=== PATIENT | male | born 1940 | race American Indian/Alaskan Native ===

== ENCOUNTER 2016-05-05 12:45 | Outpatient (CLI) | payer MEDICARE ==
--- NOTE | 2016-05-05 13:59 | Cat Scan Report ---
CT ABDOMEN WITHOUT CONTRAST: 05/05/16 12:45:00 CLINICAL: Ascites. No comparison. TECHNIQUE: Volumetric acquisition and 1.25 millimeter scan reconstructions without contrast Oral contrast was not given. FINDINGS: Abdomen: This examination is limited by the absence of bowel and IV contrast. The heart is large. Small bilateral pleural effusions, left larger than right. The liver is large with normal overall density. The right lobe measures 19 cm in length. Surface nodularity of the liver but no liver mass identified. There is a large volume of ascites and a large amount of perihepatic ascites. The portal vein is relatively large with no evidence of thrombus. There appears to be a small contracted gallbladder with several calculi layering dependently in the gallbladder. However, the gallbladder wall is not well delineated. The bile ducts are normal. Fluid and air distended stomach which is unremarkable. A large number of serpiginous opacity throughout the abdomen are suggestive of gastric, splenic and mesenteric varices. There is also increased opacity of the greater omentum. The small bowel is nondilated. Normal duodenum, pancreas and spleen. The adrenal glands and kidneys are unremarkable. The renal collecting systems and ureters are nondilated. Bilateral nonspecific perinephric stranding. It appears that there has been a total colectomy with a right ileostomy. Numerous enlarged mesenteric lymph nodes. There is an IVC filter. Calcification of the abdominal aorta. Ascites extends into the pelvis. IMPRESSION:Hepatomegaly and large volume ascites. Suspect cirrhosis of the liver with gastric and splenic varices. Mesenteric and omental opacities are suspicious for possible carcinomatosis.
== END 2016-05-05 12:46 | disposition home or self-care (01) ==
LOC: SPVIMAG 12:45
DX: K80.20 Calculus of gallbladder without cholecystitis without obstruction (principal); J90 Pleural effusion, not elsewhere classified; I70.0 Atherosclerosis of aorta; R16.0 Hepatomegaly, not elsewhere classified; Z90.49 Acquired absence of other specified parts of digestive tract; Z93.2 Ileostomy status
CPT/HCPCS: 74150

== ENCOUNTER 2016-05-06 10:04 | Inpatient (IN) | payer MEDICARE ==
[2016-05-06 11:34] LABS: Basophils % (Auto) 1.3 % (0.0-1.8); Hematocrit 43.6 % (35.5-45.6); Hemoglobin 13.6 gm/dl (11.8-15.2); Mean Corpuscular HGB Conc 31 % (32-34); Mean Corpuscular Hemoglobin 27 pg (28-32); Mean Corpuscular Volume 86 fl (84-94); Platelet Count 125 K/mm3 (140-440); Red Blood Count 5.08 M/mm3 (3.65-5.03); Red Cell Distribution Width 16.2 % (13.2-15.2); White Blood Count 5.1 K/mm3 (4.5-11.0)
[2016-05-06 11:50] LABS: Anion Gap 17 mmol/L; BUN/Creatinine Ratio 13.84; Blood Urea Nitrogen 18 mg/dL (9-20); Calcium 9.1 mg/dL (8.4-10.2); Carbon Dioxide 25 mmol/L (22-30); Chloride 104.2 mmol/L (98-107); Glucose 87 mg/dL (75-100); Potassium 3.8 mmol/L (3.6-5.0); Sodium 142 mmol/L (137-145)
--- NOTE | 2016-05-06 12:11 | XRay Report ---
ROUTINE CHEST, TWO VIEWS: HISTORY: Shortness of breath. Borderline to mild cardiomegaly and small pleural effusions are identified. Pulmonary vascularity is within normal limits. The lungs are clear. No evidence for pneumonia or pneumothorax. 3-lead pacemaker device is in position. IMPRESSION: Borderline to mild cardiomegaly and small bilateral pleural effusions.
[2016-05-06 12:17] LABS: Cholesterol 78 mg/dL (50-199); HDL Cholesterol 30 mg/dL (40-59); LDL Cholesterol,Direct 37 mg/dL (50-130); Triglycerides 59 mg/dL (2-149)
[2016-05-06 15:40] LABS: Bilirubin,Direct 0.5 mg/dL (0-0.2); Bilirubin,Total 2.3 mg/dL (0.1-1.2)
[2016-05-06 15:41] LABS: Albumin 3.4 g/dL (3.9-5); Albumin/Globulin Ratio 0.8 %; Bilirubin,Indirect 1.8 mg/dL; Total Protein 7.9 g/dL (6.3-8.2)
[2016-05-06] MEDS ORDERED: LASIX IV ONE (15:47)
--- NOTE | 2016-05-06 15:50 | Emergency Department Report ---
ED General Adult HPI - General Chief complaint: Abdominal Pain Stated complaint: SWELLING IN ABDOMEN Time Seen by Provider: 05/06/16 14:56 Source: patient, family, RN notes reviewed, old records reviewed Mode of arrival: Ambulatory Limitations: Physical Limitation - History of Present Illness Initial comments: Primary care DrAlee: Edda Brim Stiffener: [facility] Past medical history: Congestive heart failure, diabetes, hypertension, right lower quadrant colostomy, ICD [employer] This is a 75-year-old male. He is previously unknown to me. He is sent to the ER by his primary care doctor. As per verbal description from the patient's sister, the patient has been experiencing bilateral lower extremity swelling, scrotal swelling, abdominal swelling over the past few weeks. Positive mild shortness of breath. No chest pain. His primary care doctor obtain a noncontrast CT scan of the abdomen and pelvis yesterday. It demonstrated bilateral pleural effusions, large volume of ascites , perihepatic ascites, small contracted gallbladder with several dependent calculi, normal-appearing bile ducts, numerous opacities suggestive of varices, bilateral perinephric stranding. He is sent to the ER by his primary care doctor for further evaluation and management. No fevers or chills. Positive generalized weakness. No irritative or obstructive urinary symptoms. Positive mild chronic confusion as per his sister -: Gradual Location: abdomen, pelvis, genitals, left, right Radiation: distal Severity scale (0 -10): 10 Consistency: constant Improves with: none Worsens with: none Associated Symptoms: chest pain, shortness of breath, weakness - Related Data Home Medications Medication Instructions Recorded Confirmed Last Taken Carvedilol [Coreg] 3.125 mg PO BID 05/06/16 05/06/16 05/06/16 Lisinopril [Zestril] 5 mg PO QDAY 05/06/16 05/06/16 05/06/16 Metolazone 2.5 mg PO DAILY 05/06/16 05/06/16 05/06/16 Simvastatin [Zocor TAB] 20 mg PO QHS 05/06/16 05/06/16 05/05/16 Sitagliptin Phosphate [Januvia] 100 mg PO DAILY 05/06/16 05/06/16 05/06/16 glipiZIDE [Glucotrol] 10 mg PO BID 05/06/16 05/06/16 05/06/16 levETIRAcetam [Keppra TAB] 500 mg PO DAILY 05/06/16 05/06/16 05/05/16 Allergies Allergy/AdvReac Type Severity Reaction Status Date / Time codeine Allergy Unknown Verified 05/06/16 11:03 ED Review of Systems ROS: Stated complaint: SWELLING IN ABDOMEN Other details as noted in HPI Constitutional: malaise Respiratory: shortness of breath Cardiovascular: dyspnea on exertion Gastrointestinal: as per HPI Genitourinary: as per HPI Musculoskeletal: as per HPI Skin: as per HPI Neurological: weakness Psychiatric: as per HPI ED Past Medical Hx - Past Medical History Hx Hypertension: Yes Hx CVA: Yes Hx Congestive Heart Failure: Yes Hx Diabetes: Yes Hx Deep Vein Thrombosis: Yes Hx Asthma: Yes - Surgical History Hx Internal Defibrillator: Yes Additional Surgical History: COLOSTOMY - Social History Smoking Status: Former Smoker Substance Use Type: None - Medications Home Medications: Home Medications Medication Instructions Recorded Confirmed Last Taken Type Carvedilol [Coreg] 3.125 mg PO BID 05/06/16 05/06/16 05/06/16 History Lisinopril [Zestril] 5 mg PO QDAY 05/06/16 05/06/16 05/06/16 History Metolazone 2.5 mg PO DAILY 05/06/16 05/06/16 05/06/16 History Simvastatin [Zocor TAB] 20 mg PO QHS 05/06/16 05/06/16 05/05/16 History Sitagliptin Phosphate [Januvia] 100 mg PO DAILY 05/06/16 05/06/16 05/06/16 History glipiZIDE [Glucotrol] 10 mg PO BID 05/06/16 05/06/16 05/06/16 History levETIRAcetam [Keppra TAB] 500 mg PO DAILY 05/06/16 05/06/16 05/05/16 History ED Physical Exam - General Limitations: Physical Limitation General appearance: lethargic - Head Head exam: Present: atraumatic, normocephalic - Eye Eye exam: Present: normal appearance. Absent: nystagmus - ENT ENT exam: Present: mucous membranes dry - Neck Neck exam: Present: normal inspection, full ROM. Absent: tenderness, meningismus - Respiratory Respiratory exam: Present: rhonchi. Absent: respiratory distress - Cardiovascular Cardiovascular Exam: Present: regular rate, normal rhythm, normal heart sounds. Absent: bradycardia, tachycardia, irregular rhythm, systolic murmur, diastolic murmur, rubs, gallop - GI/Abdominal GI/Abdominal exam: Present: soft, distended, other (there is a right lower quadrant colostomy noted. The abdomen is distended with a positive fluid wave. There is no abdominal tenderness.). Absent: tenderness, guarding, rebound, rigid, pulsatile mass - Rectal Rectal exam: Present: deferred - exam: Present: scrotal swelling. Absent: testicular tenderness - Extremities Exam Extremities exam: Present: normal inspection, pedal edema, other (chronic discoloration, suggestive of venous insufficiency) - Back Exam Back exam: Present: normal inspection. Absent: tenderness, CVA tenderness (R) - Neurological Exam Neurological exam: Present: alert, other (Extraocular movements intact. Tongue midline. No facial droop. Facial sensation intact to light touch in the V1, V2 , V3 distribution bilaterally. 5 and 5 strength in 4 extremities.. Sensation is intact to light touch in 4 extremities.). Absent: motor sensory deficit - Psychiatric Psychiatric exam: Present: normal affect, normal mood - Skin Skin exam: Present: warm, dry, intact, normal color. Absent: rash ED Course Vital Signs 05/06/16 05/06/16 05/06/16 10:52 15:01 15:07 Temperature 98.0 F Pulse Rate 70 70 Respiratory 22 18 Rate Blood Pressure 108/77 Blood Pressure 118/84 [Right] O2 Sat by Pulse 98 100 100 Oximetry - Reevaluation(s) Reevaluation #1: 05/06/16 16:08 Differential diagnosis: Symptomatic ascites, pleural effusion, malignancy, hepatocellular carcinoma, hepatic congestion, CHF Assessment and plan: 75-year-old male with abdominal swelling, distention, shortness of breath. Patient appears to be volume overloaded, and has some faint rales on pulmonary examination. He is essentially normal renal function, and asymptomatic elevated troponin. There is specifically no chest pain. I suspect the patient's elevated troponin is secondary to congestion from his known CHF and underlying liver disease. May also have a component of mild hepatic encephalopathy. IV Lasix as ordered. I have discussed the case with the Hospital physician, Dr. Zambrano, and she graciously accepts the patient to her service. She will decide as to whether or not to call cardiology, depending on how patient does after a therapeutic/ diagnostic paracentesis. ED Medical Decision Making - Lab Data Result diagrams: 05/06/16 11:17 05/06/16 11:17 Vital Signs 05/06/16 05/06/16 05/06/16 10:52 15:01 15:07 Temperature 98.0 F Pulse Rate 70 70 Respiratory 22 18 Rate Blood Pressure 108/77 Blood Pressure 118/84 [Right] O2 Sat by Pulse 98 100 100 Oximetry Lab Results 05/06/16 05/06/16 05/06/16 Range/Units 11:17 11:17 11:17 WBC 5.1 (4.5-11.0) K/mm3 RBC 5.08 H (3.65-5.03) M/mm3 Hgb 13.6 (11.8-15.2) gm/dl Hct 43.6 (35.5-45.6) % MCV 86 (84-94) fl MCH 27 L (28-32) pg MCHC 31 L (32-34) % RDW 16.2 H (13.2-15.2) % Plt Count 125 L (140-440) K/mm3 Lymph % (Auto) 12.3 L (13.4-35.0) % [place] % (Auto) 13.6 H (0.0-7.3) % Eos % (Auto) 12.0 H (0.0-4.3) % Baso % (Auto) 1.3 (0.0-1.8) % Lymph # 0.6 L (1.2-5.4) K/mm3 [place] # 0.7 (0.0-0.8) K/mm3 Eos # 0.6 H (0.0-0.4) K/mm3 Baso # 0.1 (0.0-0.1) K/mm3 Seg Neutrophils % 60.8 (40.0-70.0) % Seg Neutrophils # 3.1 (1.8-7.7) K/mm3 Sodium 142 (137-145) mmol/L Potassium 3.8 (3.6-5.0) mmol/L Chloride 104.2 (98-107) mmol/L Carbon Dioxide 25 (22-30) mmol/L Anion Gap 17 mmol/L BUN 18 (9-20) mg/dL Creatinine 1.3 (0.8-1.5) mg/dL Estimated GFR > 60 ml/min BUN/Creatinine Ratio 13.84 % Glucose 87 (75-100) mg/dL Calcium 9.1 (8.4-10.2) mg/dL Total Bilirubin (0.1-1.2) mg/dL Direct Bilirubin (0-0.2) mg/dL Indirect Bilirubin mg/dL AST (5-40) units/L ALT (7-56) units/L Alkaline Phosphatase (35-129) units/L Troponin T 0.151 H* (0.00-0.029) ng/mL NT-Pro-B Natriuret Pep 4387 H (0-900) pg/mL Total Protein (6.3-8.2) g/dL Albumin (3.9-5) g/dL Albumin/Globulin Ratio % Triglycerides 59 (2-149) mg/dL Cholesterol 78 (50-199) mg/dL LDL Cholesterol Direct 37 L (50-130) mg/dL HDL Cholesterol 30 L (40-59) mg/dL Cholesterol/HDL Ratio 2.60 % 02/25/17 Range/Units 14:43 WBC (4.5-11.0) K/mm3 RBC (3.65-5.03) M/mm3 Hgb (11.8-15.2) gm/dl Hct (35.5-45.6) % MCV (84-94) fl MCH (28-32) pg MCHC (32-34) % RDW (13.2-15.2) % Plt Count (140-440) K/mm3 Lymph % (Auto) (13.4-35.0) % [place] % (Auto) (0.0-7.3) % Eos % (Auto) (0.0-4.3) % Baso % (Auto) (0.0-1.8) % Lymph # (1.2-5.4) K/mm3 [place] # (0.0-0.8) K/mm3 Eos # (0.0-0.4) K/mm3 Baso # (0.0-0.1) K/mm3 Seg Neutrophils % (40.0-70.0) % Seg Neutrophils # (1.8-7.7) K/mm3 Sodium (137-145) mmol/L Potassium (3.6-5.0) mmol/L Chloride (98-107) mmol/L Carbon Dioxide (22-30) mmol/L Anion Gap mmol/L BUN (9-20) mg/dL Creatinine (0.8-1.5) mg/dL Estimated GFR ml/min BUN/Creatinine Ratio % Glucose (75-100) mg/dL Calcium (8.4-10.2) mg/dL Total Bilirubin 2.3 H (0.1-1.2) mg/dL Direct Bilirubin 0.5 H (0-0.2) mg/dL Indirect Bilirubin 1.8 mg/dL AST 23 (5-40) units/L ALT 14 (7-56) units/L Alkaline Phosphatase 74 (35-129) units/L Troponin T (0.00-0.029) ng/mL NT-Pro-B Natriuret Pep (0-900) pg/mL Total Protein 7.9 (6.3-8.2) g/dL Albumin 3.4 L (3.9-5) g/dL Albumin/Globulin Ratio 0.8 % Triglycerides (2-149) mg/dL Cholesterol (50-199) mg/dL LDL Cholesterol Direct (50-130) mg/dL HDL Cholesterol (40-59) mg/dL Cholesterol/HDL Ratio % - EKG Data When compared to previous EKG there are: no significant change 05/06/16 16:09 electronic ventricular pacer, left axis deviation, good capture, abnormal EKG, appears unchanged from prior EKG. - Radiology Data Radiology results: report reviewed, image reviewed X-ray of the chest demonstrates ICD placement, pleural effusions. CT scan of the abdomen and pelvis from yesterday demonstrates ascites, hepatomegaly, possible carcinomatosis. An IVC filter is also noted. Critical care attestation.: If time is entered above; I have spent that time in minutes in the direct care of this critically ill patient, excluding procedure time. ED Disposition Clinical Impression: Ascites, Volume overload, Elevated troponin, Dyspnea Disposition: OP ADMITTED IP TO THIS HOSP Is pt being admited?: Yes Does the pt Need Aspirin: Yes Condition: Stable
--- NOTE | 2016-05-06 15:58 | History and Physical Report ---
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 Blair[[facility]] Very pleasant 75-year-old -[place] male patient with significant past medical history of severe cardiomyopathy status post ICD placement, cirrhosis of liver ascites, seizure disorder hypertension, status post colostomy, type 2 diabetes mellitus hypertension was sent by his primary care physician with history of Worsening abdominal distention ,leg and scrotal edema , worsening shortness of breath for the last few weeks worse since [address] abdomen which revealed large ascites, numerous findings suggestive of gastric varices, findings consistent with carcinomatosis Patient denies any nausea vomiting or abdominal pain, denies hematemesis or melena Denies fever or chills, denies chest pain. Complains of mild shortness of breath and orthopnea Denies nausea vomiting, Past History Past Medical History: diabetes, hypertension, liver disease, seizures, other Past Surgical History: Other (ICD placement) Social history: lives with family, full code. denies: smoking, alcohol abuse, other Family history: hypertension Medications and Allergies Allergies Allergy/AdvReac Type Severity Reaction Status Date / Time codeine Allergy Unknown Verified 05/06/16 11:03 Home Medications Medication Instructions Recorded Confirmed Last Taken Type Carvedilol [Coreg] 3.125 mg PO BID 05/06/16 05/06/16 05/06/16 History Lisinopril [Zestril] 5 mg PO QDAY 05/06/16 05/06/16 05/06/16 History Metolazone 2.5 mg PO DAILY 05/06/16 05/06/16 05/06/16 History Simvastatin [Zocor TAB] 20 mg PO QHS 05/06/16 05/06/16 05/05/16 History Sitagliptin Phosphate [Januvia] 100 mg PO DAILY 05/06/16 05/06/16 05/06/16 History glipiZIDE [Glucotrol] 10 mg PO BID 05/06/16 05/06/16 05/06/16 History levETIRAcetam [Keppra TAB] 500 mg PO DAILY 05/06/16 05/06/16 05/05/16 History Review of Systems Constitutional: weight gain, fatigue, weakness, no weight loss Ears, nose, mouth and throat: no nasal congestion, no nasal discharge Cardiovascular: shortness of breath, no chest pain, no palpitations Respiratory: shortness of breath, no cough with sputum Gastrointestinal: nausea, other (colostomy, ascites), no vomiting, no diarrhea Genitourinary Male: no dysuria, no hematuria Musculoskeletal: no myalgias, no arthritis Integumentary: no rash, no lesions Neurological: seizures, no parathesias, no syncope Psychiatric: no anxiety, no depression Endocrine: no cold intolerance, no heat intolerance, no polydipsia, no polyuria Hematologic/Lymphatic: no easy bruising, no easy bleeding Allergic/Immunologic: no urticaria, no allergic rhinitis Exam - Constitutional Vitals: Temp Pulse Resp BP Pulse Ox 98.0 F 70 18 118/84 100 05/06/16 10:52 05/06/16 15:07 05/06/16 15:07 05/06/16 15:07 05/06/16 15:07 General appearance: Present: mild distress, well-nourished, obese - EENT Eyes: Present: PERRL, EOM intact - Neck Neck: Present: supple, normal ROM - Respiratory Respiratory effort: normal Respiratory: bilateral: diminished, rales - Cardiovascular Rhythm: regular Heart Sounds: Present: S1 & S2 - Extremities Extremities: no ischemia, pulses intact Extremity abnormal: edema - Abdominal General gastrointestinal: Present: soft, non-tender, distended, normal bowel sounds, other (ascites/colostomy) - Integumentary Integumentary: Present: clear, warm - Musculoskeletal Musculoskeletal: strength equal bilaterally - Psychiatric Psychiatric: appropriate mood/affect, cooperative - Neurologic Neurologic: CNII-XII intact, moves all extremities Results - Labs CBC & Chem 7: 05/06/16 11:17 05/06/16 11:17 Labs: Abnormal lab results 05/06/16 05/06/16 05/06/16 Range/Units 11:17 11:17 11:17 RBC 5.08 H (3.65-5.03) M/mm3 MCH 27 L (28-32) pg MCHC 31 L (32-34) % RDW 16.2 H (13.2-15.2) % Plt Count 125 L (140-440) K/mm3 Lymph % (Auto) 12.3 L (13.4-35.0) % [place] % (Auto) 13.6 H (0.0-7.3) % Eos % (Auto) 12.0 H (0.0-4.3) % Lymph # 0.6 L (1.2-5.4) K/mm3 Eos # 0.6 H (0.0-0.4) K/mm3 Total Bilirubin (0.1-1.2) mg/dL Direct Bilirubin (0-0.2) mg/dL Troponin T 0.151 H* (0.00-0.029) ng/mL NT-Pro-B Natriuret Pep 4387 H (0-900) pg/mL Albumin (3.9-5) g/dL LDL Cholesterol Direct 37 L (50-130) mg/dL HDL Cholesterol 30 L (40-59) mg/dL 05/06/16 Range/Units 14:43 RBC (3.65-5.03) M/mm3 MCH (28-32) pg MCHC (32-34) % RDW (13.2-15.2) % Plt Count (140-440) K/mm3 Lymph % (Auto) (13.4-35.0) % [place] % (Auto) (0.0-7.3) % Eos % (Auto) (0.0-4.3) % Lymph # (1.2-5.4) K/mm3 Eos # (0.0-0.4) K/mm3 Total Bilirubin 2.3 H (0.1-1.2) mg/dL Direct Bilirubin 0.5 H (0-0.2) mg/dL Troponin T (0.00-0.029) ng/mL NT-Pro-B Natriuret Pep (0-900) pg/mL Albumin 3.4 L (3.9-5) g/dL LDL Cholesterol Direct (50-130) mg/dL HDL Cholesterol (40-59) mg/dL Assessment and Plan --Ascites/cirrhosis liver IV diuretics, ultrasound-guided paracentesis if needed GI consultation, supportive care --Acute exacerbation of systolic congestive heart failure Anti-failure medications Ideology evaluation --Cardiomyopathy/ICD placement Possible interrogation of ICD if needed Input-output monitoring, low sodium diet --Coagulopathy Secondary to ascites, no evidence of bleeding Closely monitor --Peritoneal carcinomatosis On CT, consider ultrasound-guided paracentesis And fluid analysis, oncology evaluation if needed --History of colostomy/functional Colostomy care --Seizure disorder Resume antiseizure medications, seizure precautions --Type 2 diabetes mellitus Accu-Chek sliding scale coverage and ADA diet Resume home oral hypoglycemics if needed --DVT prophylaxis No pharmacologic anticoagulation in view of coagulopathy SCDs --Full code status Physical therapy once medically stable --DC planning to case management Patient's condition treatment plan discussed in detail with the patient, family members at the bedside As well as the ER physician and the nurse
[2016-05-06] MEDS ORDERED: BABY ASPIRIN PO ONE (16:12)
[2016-05-06 16:27] LABS: INR 1.41 (0.87-1.13)
[2016-05-06 16:28] LABS: Partial Thromboplastin Time 34.9 Sec. (24.2-36.6)
[2016-05-06] MEDS ORDERED: ATIVAN IV PRN (16:41)
[2016-05-06] MEDS ORDERED: PROTONIX IV SCH (17:00)
[2016-05-06] MEDS: LASIX IV SCH (18:45)
[2016-05-06] MEDS ORDERED: PROTONIX IV ONE (19:05)
[2016-05-06] MEDS ORDERED: LASIX ONE ×2 (19:05)
[2016-05-06] MEDS ORDERED: BABY ASPIRIN ONE (19:05)
[2016-05-06] MEDS: NOVOLOG SUB-Q SCH ×2 (19:16→22:37)
[2016-05-06] MEDS ORDERED: LOVENOX SUB-Q SCH (22:00)
[2016-05-06] MEDS: ZOCOR PO SCH (22:36)
[2016-05-06] MEDS: KEPPRA PO SCH (22:37)
[2016-05-07 05:13] LABS: Bilirubin,Urine NEG (Negative); Blood,Urine SM (Negative); Ketones,Urine NEG (Negative); Leukocyte Esterase,Urine TR (Negative); Mucus,Urine FEW /HPF; Nitrite,Urine NEG (Negative); Protein,Urine <15 mg/dL mg/dL (Negative); Urobilinogen,Urine < 2.0 mg/dL (<2.0); WBC,Urine < 1.0 /HPF (0.0-6.0)
[2016-05-07 05:18] LABS: Alanine Aminotransferase 13 units/L (7-56); Albumin 3.5 g/dL (3.9-5); Albumin/Globulin Ratio 0.8 %; Alkaline Phosphatase 75 units/L (35-129); Anion Gap 17 mmol/L; BUN/Creatinine Ratio 14.16; Bilirubin,Direct 0.5 mg/dL (0-0.2); Bilirubin,Indirect 2.1 mg/dL; Bilirubin,Total 2.6 mg/dL (0.1-1.2); Blood Urea Nitrogen 17 mg/dL (9-20); Carbon Dioxide 29 mmol/L (22-30); Glucose 67 mg/dL (75-100); Hematocrit 42.8 % (35.5-45.6); Hemoglobin 13.3 gm/dl (11.8-15.2); Mean Corpuscular HGB Conc 31 % (32-34); Mean Corpuscular Hemoglobin 26 pg (28-32); Mean Corpuscular Volume 84 fl (84-94); Red Blood Count 5.08 M/mm3 (3.65-5.03); Red Cell Distribution Width 16.2 % (13.2-15.2); Sodium 145 mmol/L (137-145); Total Protein 7.7 g/dL (6.3-8.2); White Blood Count 4.4 K/mm3 (4.5-11.0)
[2016-05-07 05:23] LABS: INR 1.4 (0.87-1.13)
[2016-05-07] MEDS: LASIX IV SCH ×2 (05:36→18:41)
[2016-05-07 05:46] LABS: Potassium 2.9 mmol/L (3.6-5.0)
[2016-05-07] MEDS ORDERED: K-DUR PO ONE (05:52)
[2016-05-07] MEDS: NOVOLOG SUB-Q SCH ×4 (08:00→22:40)
[2016-05-07] MEDS ORDERED: GLUCOTROL PO SCH (08:00)
[2016-05-07 08:59] LABS: Basophils % (Manual) 0 % (0.0-1.8); Blastocytes % (Manual) 0 %
[2016-05-07 09:00] LABS: Anisocytosis Few; Elliptocytes Few
[2016-05-07 09:01] LABS: Diff Status Complete; Platelet Estimate Appears Decreased
[2016-05-07 09:07] LABS: Platelet Count 114 K/mm3 (140-440)
[2016-05-07] MEDS ORDERED: HYDRALAZINE HCL PO SCH (10:00)
--- NOTE | 2016-05-07 10:23 | Progress Note ---
Assessment and Plan Assessment and plan: Ascites/cirrhosis liver * IV diuretics, ultrasound-guided paracentesis * GI following, supportive care Acute exacerbation of systolic congestive heart failure * cont coreg, lisinopril and lasix * cardiology eval * no aspirin as pt is coagulopathic Cardiomyopathy s/p ICD placement * monitor for arrhythmia Coagulopathy * Secondary to hepatic cirrhosis, no evidence of bleeding * Closely monitor Peritoneal carcinomatosis * On CT, ascitic fluid study following ultrasound-guided paracentesis * oncology evaluation if needed History of colostomy/functional * Colostomy care Seizure disorder * continue antiseizure medications, seizure precautions Type 2 diabetes mellitus * Accu-Chek sliding scale coverage and ADA diet PVD, likley * get LLE arterial doppler Severe hypokalemia * replace and monitor, could be due to diuretics DVT prophylaxis * No pharmacologic anticoagulation in view of coagulopathy * SCDs Full code status History Interval history: Patient seen and examined. Medical records and medication list reviewed. No acute event overnight noted by the RN. Patient denies any chest pain or difficulty breathing. Patient is tolerating diet. c/o distended abdomen and scrotum Discussed plan of care at bedside with patient. Hospitalist Physical - Physical exam Narrative exam: GENERAL: elderly male lying on bed appeared to be in no discomfort. HEENT: Normocephalic. Atraumatic. No conjunctival congestion. Patient has moist mucous membranes. NECK: Supple. Trachea midline. CHEST/LUNGS: Clear to auscultated bilaterally, breathing nonlabored. No wheezes crackles or rhonchi. HEART/CARDIOVASCULAR: Regular in rate and rhythm. S1 and S2 positive. faint LLE dorsalis pedis ABDOMEN: Abdomen is soft, distended with fluid thrill. Patient has normal bowel sounds. colostomy bag in place. enlarged scrotum SKIN: There is no rash. cold left LE, b/l cohen discoloration NEURO: No focal motor deficit. Follows command. MUSCULOSKELETAL: No joint effusion or tenderness. EXTRIMITY: No edema, no cyanosis or clubbing. PSYCH: Cooperative. - Constitutional Vitals: Temp Pulse Resp BP Pulse Ox 97.5 F L 70 20 106/68 99 05/07/16 07:35 05/07/16 07:35 05/07/16 07:35 05/07/16 07:35 05/07/16 07:35 General appearance: Present: mild distress, well-nourished, obese Results - Labs CBC & Chem 7: 05/07/16 04:04 05/08/16 08:42 Labs: Laboratory Last Values WBC 4.4 K/mm3 (4.5-11.0) L 05/07/16 04:04 RBC 5.08 M/mm3 (3.65-5.03) H 05/07/16 04:04 Hgb 13.3 gm/dl (11.8-15.2) 05/07/16 04:04 Hct 42.8 % (35.5-45.6) 05/07/16 04:04 MCV 84 fl (84-94) 05/07/16 04:04 MCH 26 pg (28-32) L 05/07/16 04:04 MCHC 31 % (32-34) L 05/07/16 04:04 RDW 16.2 % (13.2-15.2) H 05/07/16 04:04 Plt Count 114 K/mm3 (140-440) L 05/07/16 04:04 Lymph % (Auto) 12.3 % (13.4-35.0) L 05/06/16 11:17 [place] % (Auto) 13.6 % (0.0-7.3) H 05/06/16 11:17 Eos % (Auto) [employer] And [employer] Agent 05/07/16 04:04 Baso % (Auto) 1.3 % (0.0-1.8) 05/06/16 11:17 Lymph # 0.6 K/mm3 (1.2-5.4) L 05/06/16 11:17 [place] # 0.7 K/mm3 (0.0-0.8) 05/06/16 11:17 Eos # 0.6 K/mm3 (0.0-0.4) H 05/06/16 11:17 Baso # 0.1 K/mm3 (0.0-0.1) 05/06/16 11:17 Add Manual Diff Complete 05/07/16 04:04 Total Counted 100 05/07/16 04:04 Seg Neutrophils % 60.8 % (40.0-70.0) 05/06/16 11:17 Seg Neuts % (Manual) 62.0 % (40.0-70.0) 05/07/16 04:04 Band Neutrophils % 0 % 05/07/16 04:04 Lymphocytes % (Manual) 17.0 % (13.4-35.0) 05/07/16 04:04 Reactive Lymphs % (Man) 0 % 05/07/16 04:04 Monocytes % (Manual) 7.0 % (0.0-7.3) 05/07/16 04:04 Eosinophils % (Manual) 14.0 % (0.0-4.3) H 05/07/16 04:04 Basophils % (Manual) 0 % (0.0-1.8) 05/07/16 04:04 Metamyelocytes % 0 % 05/07/16 04:04 Myelocytes % 0 % 05/07/16 04:04 Promyelocytes % 0 % 05/07/16 04:04 Blast Cells % 0 % 05/07/16 04:04 Nucleated RBC % Not Reportable 05/07/16 04:04 Seg Neutrophils # 3.1 K/mm3 (1.8-7.7) 05/06/16 11:17 Seg Neutrophils # Man 2.7 K/mm3 (1.8-7.7) 05/07/16 04:04 Band Neutrophils # 0.0 K/mm3 05/07/16 04:04 Lymphocytes # (Manual) 0.7 K/mm3 (1.2-5.4) L 05/07/16 04:04 Abs React Lymphs (Man) 0.0 K/mm3 05/07/16 04:04 Monocytes # (Manual) 0.3 K/mm3 (0.0-0.8) 05/07/16 04:04 Eosinophils # (Manual) 0.6 K/mm3 (0.0-0.4) H 05/07/16 04:04 Basophils # (Manual) 0.0 K/mm3 (0.0-0.1) 05/07/16 04:04 Metamyelocytes # 0.0 K/mm3 05/07/16 04:04 Myelocytes # 0.0 K/mm3 05/07/16 04:04 Promyelocytes # 0.0 K/mm3 05/07/16 04:04 Blast Cells # 0.0 K/mm3 05/07/16 04:04 WBC Morphology Not Reportable 05/07/16 04:04 Hypersegmented Neuts Not Reportable 05/07/16 04:04 Hyposegmented Neuts Not Reportable 05/07/16 04:04 Hypogranular Neuts Not Reportable 05/07/16 04:04 Smudge Cells Not Reportable 05/07/16 04:04 Toxic Granulation Not Reportable 05/07/16 04:04 Toxic Vacuolation Not Reportable 05/07/16 04:04 Dohle Bodies Not Reportable 05/07/16 04:04 Pelger-Huet Anomaly Not Reportable 05/07/16 04:04 Katherine Rods Not Reportable 05/07/16 04:04 Platelet Estimate Appears decreased 05/07/16 04:04 Clumped Platelets Not Reportable 05/07/16 04:04 Plt Clumps, EDTA Not Reportable 05/07/16 04:04 Large Platelets Not Reportable 05/07/16 04:04 Giant Platelets Not Reportable 05/07/16 04:04 Platelet Satelliting Not Reportable 05/07/16 04:04 Plt Morphology Comment Not Reportable 05/07/16 04:04 RBC Morphology Not Reportable 05/07/16 04:04 Dimorphic RBCs Not Reportable 05/07/16 04:04 Polychromasia Not Reportable 05/07/16 04:04 Hypochromasia Not Reportable 05/07/16 04:04 Poikilocytosis Not Reportable 05/07/16 04:04 Anisocytosis Few 05/07/16 04:04 Microcytosis Not Reportable 05/07/16 04:04 Macrocytosis Not Reportable 05/07/16 04:04 Spherocytes Not Reportable 05/07/16 04:04 Pappenheimer Bodies Not Reportable 05/07/16 04:04 Sickle Cells Not Reportable 05/07/16 04:04 Target Cells Not Reportable 05/07/16 04:04 Tear Drop Cells Not Reportable 05/07/16 04:04 Ovalocytes Not Reportable 05/07/16 04:04 Helmet Cells Not Reportable 05/07/16 04:04 [place] Bodies Not Reportable 05/07/16 04:04 [place] Rings Not Reportable 05/07/16 04:04 Marc Cells Not Reportable 05/07/16 04:04 Bite Cells Not Reportable 05/07/16 04:04 Crenated Cell Not Reportable 05/07/16 04:04 Elliptocytes Few 05/07/16 04:04 Acanthocytes (Spur) Not Reportable 05/07/16 04:04 Rouleaux Not Reportable 05/07/16 04:04 Hemoglobin C Crystals Not Reportable 05/07/16 04:04 Schistocytes Not Reportable 05/07/16 04:04 Malaria parasites Not Reportable 05/07/16 04:04 Honorio Bodies Not Reportable 05/07/16 04:04 Hem Pathologist Commnt No 05/07/16 04:04 PT 17.1 Sec. (12.2-14.9) H 05/07/16 04:04 INR 1.40 (0.87-1.13) H 05/07/16 04:04 APTT 34.9 Sec. (24.2-36.6) 05/06/16 15:58 Sodium 145 mmol/L (137-145) 05/07/16 04:04 Potassium 2.9 mmol/L (3.6-5.0) L* D 05/07/16 04:04 Chloride 102.0 mmol/L (98-107) 05/07/16 04:04 Carbon Dioxide 29 mmol/L (22-30) 05/07/16 04:04 Anion Gap 17 mmol/L 05/07/16 04:04 BUN 17 mg/dL (9-20) 05/07/16 04:04 Creatinine 1.2 mg/dL (0.8-1.5) 05/07/16 04:04 Estimated GFR > 60 ml/min 05/07/16 04:04 BUN/Creatinine Ratio 14.16 % 05/07/16 04:04 Glucose 67 mg/dL (75-100) L 05/07/16 04:04 POC Glucose 123 (70-105) H 05/06/16 21:54 Hemoglobin A1c 7.0 % (4-6) H 05/07/16 04:04 Calcium 9.0 mg/dL (8.4-10.2) 05/07/16 04:04 Total Bilirubin 2.6 mg/dL (0.1-1.2) H 05/07/16 04:04 Direct Bilirubin 0.5 mg/dL (0-0.2) H 05/07/16 04:04 Indirect Bilirubin 2.1 mg/dL 05/07/16 04:04 AST 21 units/L (5-40) 05/07/16 04:04 ALT 13 units/L (7-56) 05/07/16 04:04 Alkaline Phosphatase 75 units/L (35-129) 05/07/16 04:04 Ammonia 45.0 umol/L (25-60) 05/06/16 15:58 Troponin T 0.151 ng/mL (0.00-0.029) H* 05/06/16 11:17 NT-Pro-B Natriuret Pep 4387 pg/mL (0-900) H 05/06/16 11:17 Total Protein 7.7 g/dL (6.3-8.2) 05/07/16 04:04 Albumin 3.5 g/dL (3.9-5) L 05/07/16 04:04 Albumin/Globulin Ratio 0.8 % 05/07/16 04:04 Triglycerides 59 mg/dL (2-149) 05/06/16 11:17 Cholesterol 78 mg/dL (50-199) 05/06/16 11:17 LDL Cholesterol Direct 37 mg/dL (50-130) L 05/06/16 11:17 HDL Cholesterol 30 mg/dL (40-59) L 05/06/16 11:17 Cholesterol/HDL Ratio 2.60 % 05/06/16 11:17 Urine Color Straw (Yellow) 05/06/16 04:30 Urine Turbidity Clear (Clear) 05/06/16 04:30 Urine pH 5.0 (5.0-7.0) 05/06/16 04:30 Ur Specific [place] 1.005 (1.003-1.030) 05/06/16 04:30 Urine Protein <15 mg/dl mg/dL (Negative) 05/06/16 04:30 Urine Glucose (UA) Neg mg/dL (Negative) 05/06/16 04:30 Urine Ketones Neg mg/dL (Negative) 05/06/16 04:30 Urine Blood Sm (Negative) 05/06/16 04:30 Urine Nitrite Neg (Negative) 05/06/16 04:30 Urine Bilirubin Neg (Negative) 05/06/16 04:30 Urine Urobilinogen < 2.0 mg/dL (<2.0) 05/06/16 04:30 Ur Leukocyte Esterase Tr (Negative) 05/06/16 04:30 Urine WBC (Auto) < 1.0 /HPF (0.0-6.0) 05/06/16 04:30 Urine RBC (Auto) 2.0 /HPF (0.0-6.0) 05/06/16 04:30 U Epithel Cells (Auto) 3.0 /HPF (0-13.0) 05/06/16 04:30 Amorphous Crystals 1+ 05/06/16 04:30 Hyaline Casts 6 /LPF 05/06/16 04:30 Urine Mucus Few /HPF 05/06/16 04:30 - Imaging and Cardiology Chest x-ray: report reviewed CT scan - abdomen: report reviewed
[2016-05-07] MEDS: ZESTRIL PO SCH (10:50)
[2016-05-07] MEDS: ZAROXOLYN PO SCH (10:50)
[2016-05-07] MEDS: KEPPRA PO SCH ×2 (10:50→22:35)
[2016-05-07] MEDS: COREG PO SCH (10:50)
[2016-05-07] MEDS: PROTONIX PO SCH (11:07)
--- NOTE | 2016-05-07 11:41 | Gastroenterology Consultation ---
History of Present Illness - Reason for Consult Consult date: 05/07/16 Cirrhosis, ascites Requesting physician: KEIKO PLUMMER - History of Present Illness Asked to see this 75yo man for evaluation of abdominal distension and ascites. He has been seen by Dr. Reeder at [facility] on several occasions. At that time, he was getting multiple colonoscopies for decompression and eventually underwent a total abdominal colectomy by Dr. Friedman in 04/2013. It appears that in 08/2013, he was evaluated for ascites and underwent a paracentesis at that time (at [facility]). Fluid analysis did show evidence of SBP. He has been experiencing worsening abdominal distension and some SOB, so his PMD ordered an outpatient CT scan, which demonstrated large ascites, gastric varices and possible carcinomatosis. No obvious mass lesions were seen. His history is very unreliable at this time, so the information is limited. He denies any abdominal pain, vomiting, CP/SOB. Past History Past Medical History: diabetes, hypertension, liver disease, seizures, other Past Surgical History: Other (ICD placement) Social history: lives with family, full code. denies: smoking, alcohol abuse, other Family history: hypertension Medications and Allergies Allergies Allergy/AdvReac Type Severity Reaction Status Date / Time codeine Allergy Unknown Verified 05/06/16 11:03 Home Medications Medication Instructions Recorded Confirmed Last Taken Type Carvedilol [Coreg] 3.125 mg PO BID 05/06/16 05/06/16 05/06/16 History Lisinopril [Zestril] 5 mg PO QDAY 05/06/16 05/06/16 05/06/16 History Metolazone 2.5 mg PO DAILY 05/06/16 05/06/16 05/06/16 History Simvastatin [Zocor TAB] 20 mg PO QHS 05/06/16 05/06/16 05/05/16 History Sitagliptin Phosphate [Januvia] 100 mg PO DAILY 05/06/16 05/06/16 05/06/16 History glipiZIDE [Glucotrol] 10 mg PO BID 05/06/16 05/06/16 05/06/16 History levETIRAcetam [Keppra TAB] 500 mg PO DAILY 05/06/16 05/06/16 05/05/16 History Active Meds: Active Medications Carvedilol (Coreg) 6.25 mg PO DAILY [facility] Last Admin: 05/07/16 10:50 Dose: 6.25 mg Enoxaparin Sodium (Lovenox) 40 mg SUB-Q QDAY@2200 [facility] Last Admin: 05/06/16 22:37 Dose: 40 mg Furosemide (Lasix) 40 mg IV 0600,1800 [facility] Last Admin: 05/07/16 05:36 Dose: 40 mg Insulin Aspart (Novolog) 0 units SUB-Q ACHS [facility] PRN Reason: Protocol Last Admin: 05/06/16 22:37 Dose: Not Given Levetiracetam (Keppra) 500 mg PO BID [facility] Last Admin: 05/07/16 10:50 Dose: 500 mg Lisinopril (Zestril) 5 mg PO QDAY [facility] Last Admin: 05/07/16 10:50 Dose: 5 mg Lorazepam (Ativan) 2 mg IV Q4H PRN PRN Reason: Seizures Metolazone (Zaroxolyn) 2.5 mg PO DAILY [facility] Last Admin: 05/07/16 10:50 Dose: 2.5 mg Miscellaneous Medication (Hydralazine Hcl [Apresoline Tab]) 3 each PO DAILY [facility] Pantoprazole Sodium (Protonix) 40 mg PO DAILY [facility] Last Admin: 05/07/16 11:07 Dose: 40 mg Simvastatin (Zocor) 20 mg PO QHS [facility] Last Admin: 05/06/16 22:36 Dose: 20 mg Review of Systems - Review of Systems ROS unobtainable: due to mental status (pt unreliable informant) Exam - Constitutional Vital Signs: Temp Pulse Resp BP Pulse Ox 97.5 F L 70 20 106/68 99 05/07/16 07:35 05/07/16 10:50 05/07/16 07:35 05/07/16 10:50 05/07/16 07:35 General appearance: no acute distress - EENT Eyes: PERRL - Neck Neck: supple - Respiratory Respiratory: bilateral: diminished - Cardiovascular Rhythm: regular Heart Sounds: Present: S1 & S2 Extremities: abnormal (chronic stasis changes) - Gastrointestinal General gastrointestinal: Present: non-tender, distended, normal bowel sounds, other (firm, midline scar, +RLQ ostomy, +scrotal edema) - Neurologic Neurological: oriented to person, oriented to place - Labs CBC & Chem 7: 05/07/16 04:04 05/07/16 04:04 Lab Results: Laboratory Results - last 24 hr 05/06/16 05/06/16 05/07/16 18:59 21:54 04:04 WBC 4.4 L RBC 5.08 H Hgb 13.3 Hct 42.8 MCV 84 MCH 26 L MCHC 31 L RDW 16.2 H Plt Count 114 L Eos % (Auto) Supervisor Coremaker Add Manual Diff Complete Total Counted 100 Seg Neuts % (Manual) 62.0 Band Neutrophils % 0 Lymphocytes % (Manual) 17.0 Reactive Lymphs % (Man) 0 Monocytes % (Manual) 7.0 Eosinophils % (Manual) 14.0 H Basophils % (Manual) 0 Metamyelocytes % 0 Myelocytes % 0 Promyelocytes % 0 Blast Cells % 0 Nucleated RBC % Not Reportable Seg Neutrophils # Man 2.7 Band Neutrophils # 0.0 Lymphocytes # (Manual) 0.7 L Abs React Lymphs (Man) 0.0 Monocytes # (Manual) 0.3 Eosinophils # (Manual) 0.6 H Basophils # (Manual) 0.0 Metamyelocytes # 0.0 Myelocytes # 0.0 Promyelocytes # 0.0 Blast Cells # 0.0 WBC Morphology Not Reportable Hypersegmented Neuts Not Reportable Hyposegmented Neuts Not Reportable Hypogranular Neuts Not Reportable Smudge Cells Not Reportable Toxic Granulation Not Reportable Toxic Vacuolation Not Reportable Dohle Bodies Not Reportable Pelger-[place]uet Anomaly Not Reportable Katherine Rods Not Reportable Platelet Estimate Appears decreased Clumped Platelets Not Reportable Plt Clumps, EDTA Not Reportable Large Platelets Not Reportable Giant Platelets Not Reportable Platelet Satelliting Not Reportable Plt Morphology Comment Not Reportable RBC Morphology Not Reportable Dimorphic RBCs Not Reportable Polychromasia Not Reportable Hypochromasia Not Reportable Poikilocytosis Not Reportable Anisocytosis Few Microcytosis Not Reportable Macrocytosis Not Reportable Spherocytes Not Reportable Pappenheimer Bodies Not Reportable Sickle Cells Not Reportable Target Cells Not Reportable Tear Drop Cells Not Reportable Ovalocytes Not Reportable Helmet Cells Not Reportable [place] Bodies Not Reportable [place] Rings Not Reportable Marc Cells Not Reportable Bite Cells Not Reportable Crenated Cell Not Reportable Elliptocytes Few Acanthocytes (Spur) Not Reportable Rouleaux Not Reportable Hemoglobin C Crystals Not Reportable Schistocytes Not Reportable Malaria parasites Not Reportable Honorio Bodies Not Reportable Hem Pathologist Commnt No PT INR Sodium Potassium Chloride Carbon Dioxide Anion Gap BUN Creatinine Estimated GFR BUN/Creatinine Ratio Glucose POC Glucose 106 H 123 H Hemoglobin A1c Calcium Total Bilirubin Direct Bilirubin Indirect Bilirubin AST ALT Alkaline Phosphatase Total Protein Albumin Albumin/Globulin Ratio 05/07/16 05/07/16 05/07/16 04:04 04:04 04:04 WBC RBC Hgb Hct MCV MCH MCHC RDW Plt Count Eos % (Auto) Add Manual Diff Total Counted Seg Neuts % (Manual) Band Neutrophils % Lymphocytes % (Manual) Reactive Lymphs % (Man) Monocytes % (Manual) Eosinophils % (Manual) Basophils % (Manual) Metamyelocytes % Myelocytes % Promyelocytes % Blast Cells % Nucleated RBC % Seg Neutrophils # Man Band Neutrophils # Lymphocytes # (Manual) Abs React Lymphs (Man) Monocytes # (Manual) Eosinophils # (Manual) Basophils # (Manual) Metamyelocytes # Myelocytes # Promyelocytes # Blast Cells # WBC Morphology Hypersegmented Neuts Hyposegmented Neuts Hypogranular Neuts Smudge Cells Toxic Granulation Toxic Vacuolation Dohle Bodies Pelger-Huet Anomaly Katherine Rods Platelet Estimate Clumped Platelets Plt Clumps, EDTA Large Platelets Giant Platelets Platelet Satelliting Plt Morphology Comment RBC Morphology Dimorphic RBCs Polychromasia Hypochromasia Poikilocytosis Anisocytosis Microcytosis Macrocytosis Spherocytes Pappenheimer Bodies Sickle Cells Target Cells Tear Drop Cells Ovalocytes Helmet Cells [place] Bodies [place] Rings Marc Cells Bite Cells Crenated Cell Elliptocytes Acanthocytes (Spur) Rouleaux Hemoglobin C Crystals Schistocytes Malaria parasites Honorio Bodies Hem Pathologist Commnt PT 17.1 H INR 1.40 H Sodium 145 Potassium 2.9 L* D Chloride 102.0 Carbon Dioxide 29 Anion Gap 17 BUN 17 Creatinine 1.2 Estimated GFR > 60 BUN/Creatinine Ratio 14.16 Glucose 67 L POC Glucose Hemoglobin A1c 7.0 H Calcium 9.0 Total Bilirubin 2.6 H Direct Bilirubin 0.5 H Indirect Bilirubin 2.1 AST 21 ALT 13 Alkaline Phosphatase 75 Total Protein 7.7 Albumin 3.5 L Albumin/Globulin Ratio 0.8 Assessment and Plan 75yo man admitted with worsening ascites of unclear etiology. Pt has ICD in place, so cardiac ascites is possible; however, report of CT states possible carcinomatosis, so malignant ascites is also possible. Rec: 1) Would obtain U/S guided paracentesis and ensure to send for cell count, albumin, total protein, culture, cytology 2) If malignant, ascites would not likely respond well to diuretics Thank you for allowing me to participate in the care of your patient. Please do not hesitate to contact me with any questions.
--- NOTE | 2016-05-07 12:34 | Consultation ---
History of Present Illness Consult date: 05/07/16 Consult reason: congestive heart failure History of present illness: 75 YO man wtih h/o cardiomyopathy s/p AUTHOR AGENT-D, previous colostomy, and liver cirrhosis who presented to hospital with worsening abdominal pain and distension. He had recent abdominal CT scan which revealed large ascites, varices, and possible peritoneal carcinomatosis. He has chronic exertional dyspnea with minimal activity which has not changed from baseline. He was noted to have minimally elevated troponin level. He has not had any signfiicant chest pain. Past History Past Medical History: diabetes, heart failure, hypertension, liver disease, seizures, other Past Surgical History: Other (ICD placement) Social history: lives with family, full code. denies: smoking, alcohol abuse, other Family history: hypertension Medications and Allergies Allergies Allergy/AdvReac Type Severity Reaction Status Date / Time codeine Allergy Unknown Verified 05/06/16 11:03 Home Medications Medication Instructions Recorded Confirmed Last Taken Type Carvedilol [Coreg] 3.125 mg PO BID 05/06/16 05/06/16 05/06/16 History Lisinopril [Zestril] 5 mg PO QDAY 05/06/16 05/06/16 05/06/16 History Metolazone 2.5 mg PO DAILY 05/06/16 05/06/16 05/06/16 History Simvastatin [Zocor TAB] 20 mg PO QHS 05/06/16 05/06/16 05/05/16 History Sitagliptin Phosphate [Januvia] 100 mg PO DAILY 05/06/16 05/06/16 05/06/16 History glipiZIDE [Glucotrol] 10 mg PO BID 05/06/16 05/06/16 05/06/16 History levETIRAcetam [Keppra TAB] 500 mg PO DAILY 05/06/16 05/06/16 05/05/16 History Active Meds: Active Medications Carvedilol (Coreg) 6.25 mg PO DAILY [facility] Last Admin: 05/07/16 10:50 Dose: 6.25 mg Enoxaparin Sodium (Lovenox) 40 mg SUB-Q QDAY@2200 [facility] Last Admin: 05/06/16 22:37 Dose: 40 mg Furosemide (Lasix) 40 mg IV 0600,1800 [facility] Last Admin: 05/07/16 05:36 Dose: 40 mg Insulin Aspart (Novolog) 0 units SUB-Q ACHS [facility] PRN Reason: Protocol Last Admin: 05/06/16 22:37 Dose: Not Given Levetiracetam (Keppra) 500 mg PO BID [facility] Last Admin: 05/07/16 10:50 Dose: 500 mg Lisinopril (Zestril) 5 mg PO QDAY [facility] Last Admin: 05/07/16 10:50 Dose: 5 mg Lorazepam (Ativan) 2 mg IV Q4H PRN PRN Reason: Seizures Metolazone (Zaroxolyn) 2.5 mg PO DAILY [facility] Last Admin: 05/07/16 10:50 Dose: 2.5 mg Miscellaneous Medication (Hydralazine Hcl [Apresoline Tab]) 3 each PO DAILY [facility] Pantoprazole Sodium (Protonix) 40 mg PO DAILY [facility] Last Admin: 05/07/16 11:07 Dose: 40 mg Simvastatin (Zocor) 20 mg PO QHS [facility] Last Admin: 05/06/16 22:36 Dose: 20 mg Review of Systems All systems: negative (per hpi) Physical Examination Vital Signs Temp Pulse Resp BP Pulse Ox 98.0 F 70 22 108/77 98 05/06/16 10:52 05/06/16 10:52 05/06/16 10:52 05/06/16 10:52 05/06/16 10:52 General appearance: no acute distress HEENT: Positive: PERRL, EOMI Cardiac: Positive: Reg Rate and Rhythm, Systolic Murmur Lungs: Positive: clear to auscultation Neuro: Positive: Grossly Intact Abdomen: Positive: Ascites, Distended Extremities: Present: +1 Edema Results 05/07/16 04:04 05/07/16 04:04 Cardiac Enzymes 05/07/16 Range/Units 04:04 AST 21 (5-40) units/L Coagulation 05/07/16 Range/Units 04:04 PT 17.1 H (12.2-14.9) Sec. INR 1.40 H (0.87-1.13) CBC 05/07/16 Range/Units 04:04 WBC 4.4 L (4.5-11.0) K/mm3 RBC 5.08 H (3.65-5.03) M/mm3 Hgb 13.3 (11.8-15.2) gm/dl Hct 42.8 (35.5-45.6) % Plt Count 114 L (140-440) K/mm3 Comprehensive Metabolic Panel 05/07/16 Range/Units 04:04 Sodium 145 (137-145) mmol/L Potassium 2.9 L* D (3.6-5.0) mmol/L Chloride 102.0 (98-107) mmol/L Carbon Dioxide 29 (22-30) mmol/L BUN 17 (9-20) mg/dL Creatinine 1.2 (0.8-1.5) mg/dL Glucose 67 L (75-100) mg/dL Calcium 9.0 (8.4-10.2) mg/dL Direct Bilirubin 0.5 H (0-0.2) mg/dL Indirect Bilirubin 2.1 mg/dL AST 21 (5-40) units/L ALT 13 (7-56) units/L Alkaline Phosphatase 75 (35-129) units/L Total Protein 7.7 (6.3-8.2) g/dL Albumin 3.5 L (3.9-5) g/dL Assessment and Plan Large ascites and possible peritoneal carcinomatosis Chronic systolic heart failure Cardiomyopathy s/p AUTHOR AGENT-D Non-specifically elevated troponin with no other signs/symptoms for ACS Recommend: GI evaluation. Continue diuresis Proceed with paracentesis
[2016-05-07] MEDS: ZOCOR PO SCH (22:35)
[2016-05-08] MEDS: LASIX IV SCH ×2 (06:28→18:55)
[2016-05-08] MEDS: NOVOLOG SUB-Q SCH ×3 (08:00→17:40)
[2016-05-08 09:36] LABS: Anion Gap 19 mmol/L; BUN/Creatinine Ratio 14.16; Blood Urea Nitrogen 17 mg/dL (9-20); Calcium 9.1 mg/dL (8.4-10.2); Carbon Dioxide 29 mmol/L (22-30); Chloride 97.7 mmol/L (98-107); Glucose 98 mg/dL (75-100); Sodium 143 mmol/L (137-145)
[2016-05-08 09:43] LABS: Potassium 2.6 mmol/L (3.6-5.0)
[2016-05-08] MEDS: PROTONIX PO SCH (10:44)
[2016-05-08] MEDS: ZAROXOLYN PO SCH (10:44)
[2016-05-08] MEDS: KEPPRA PO SCH ×2 (10:44→22:31)
[2016-05-08] MEDS: COREG PO SCH (10:44)
[2016-05-08] MEDS: ZESTRIL PO SCH (10:46)
--- NOTE | 2016-05-08 10:54 | Ultrasound Report ---
ULTRASOUND ABDOMEN: INDICATION: Ascites. COMPARISON: 05/05/2016 CT. FINDINGS: Abdominal sonography demonstrates slight diffuse hepatic coarsening without definite focal suspicious lesions or biliary dilatation. Subtle hepatic surface lobulations on CT not well assessed sonographically. Prominent veins noted. Ascites in all 4 quadrants and also adjacent to the urinary bladder again seen. Few small echogenic gallstones measuring 3-4 mm within a contracted gallbladder with exaggerated wall thickness of 5.5 mm. Common bile duct is 4.3 mm. Homogenous spleen, 11.8 cm in length. Visualized pancreas, IVC and nonaneurysmal abdominal aorta within normal limits. Nonhydronephrotic kidneys. Right kidney is 10 x 5 x 6.5 cm with cortical thickness of 1.3 cm. Left kidney estimated at 10.2 x 5.7 x 5.7 cm with cortical thickness of 1.5 cm. CONCLUSION: Cholelithiasis, ascites and cirrhosis again noted, as described. Thank you for the opportunity to participate in this patient's care.
[2016-05-08] MEDS ORDERED: K-DUR PO ONE (11:50)
--- NOTE | 2016-05-08 13:20 | Admit Criteria Form ---
Admission Criteria Documentation: HEART FAILURE Clinical Indications for Admission to Inpatient Care (Place 'X' for any and all applicable criteria): Admission is indicated by ANY ONE of the following(1)(2)(3)(4): [ ]I. Severe electrolyte abnormalities requiring inpatient care(9) [ ]II. Hemodynamic instability [X]III. Anasarca [ ]IV. Acute cardiac ischemia causing or associated with failure (Also use Angina or Myocardial Infarction as appropriate) [ ]V. Cardiac arrhythmias of immediate concern [ ]. Precipitating cause for acute decompensation (eg, pneumonia, pulmonary embolism) requires inpatient care [ ]VII. Pulmonary edema that is very severe (eg, mechanical ventilation needed, imminent or likely, need for 100% oxygen to keep oxygen saturation above 90%) [X]VIII. Inpatient admission required rather than observation care (Also use Heart Failure: Observation Care as appropriate) because of ANY ONE of the following: [ ]a) Pulmonary edema that is severe or worsening as indicated by ALL of the following: [ ]i) New need for oxygen therapy to keep oxygen saturation above 90% (or increased FiO2 need from baseline) [ ]ii) Has not improved sufficiently with emergency department or observation care IV diuretics or other heart failure treatments[C] [ ]b) Cognitive impairment that is severe or persistent [ ]c) Increased creatinine (new on laboratory test) with reduction of more than 50% in estimated glomerular filtration rate from baseline. [ ]d) Acute renal insufficiency (progressively (ongoing) rising creatinine (known from past laboratory test) with reduction of more than 25% in estimated glomerular filtration rate from baseline) [ ]e) Acute peripheral ischemia (eg, pulseless, cool, mottled, or cyanotic extremity) [ ]f) Acute renal failure [ ]g) Supplemental O2 or respiratory treatment for >24 hr that are performable only in acute inpatient setting [ ]h) Pulmonary artery catheter monitoring [ X]i) Other condition, treatment or monitoring requiring inpatient admission [ ]IX. Contraindications and/or Inappropriate clinical situations for Observational Care in patients with Heart Failure, when ANY ONE of the following is required: [ ]a) Patient with High risk of cardiac embolism (e.g, patients with previous cardiac embolism, LVEF < 40%, age >75 and patients with prosthetic valve) 18 [ ]b) Patient with Moderate risk including DM patient, CAD and patient aged 65-75 [ ]c) Patient with any change in cardiac biomarker especially troponin should be managed as high risk in an inpatient setting 19 [ ]d) Physician judgement irrespective of ECG and other diagnostic findings 20 [ ]e) Patients with hyponatremia have high risk for mortality and require more extensive care and length of stay 21 [ ]f) Need for large volume diuresis 21 [ ]g) Presence of renal insufficiency or hypotension limiting speed of diuresis 21 [ ]h) Acute cardiac Ischemia in the elderly 21 [ ]i) Patients with a 30 day risk of mortality based on a multidimensional prognostic index (MPI) [J,]21 [ ]X. General contraindications and/or Inappropriate clinical situations for Observational Care in patients with Heart Failure, when ANY ONE of the following is required: [ ]a) Prediction of prolongation of LOS based on ANY ONE of the following may be considered as a contraindication for observational care 2, 3, 4, 5, 6, 7, 8 , 9, 10, 11 [ ]i) Age > 65 yrs. [ ]ii) Patient arriving by ambulance [ ]iii) Patient with high acuity [ ]iv) Patient requiring vital sign monitoring [ ]v) Patient on IV medication [ ]b) Systolic blood pressures 180mmHg 3,12 [ ]c) Patient with altered mental status including delirium and other alteration of consciousness, (3) [ ]d) Patient whose discharge disposition will be to a [facility] home or rehabilitation home should not be managed in Emergency Department Observation Unit. CMS rule requires 3 days hospital stay before such placement.3,13 [ ]e) Patient with failure to thrive due to broad array of etiologies 3,16,17 [ ]f) Inability to ambulate 3,14 Extended stay beyond goal length of stay may be needed for(1)(3)(21)(25): [ ]a) Cardiac ischemia, confirmed or suspected as precipitant [ ]b) Cardiogenic shock or refractory pulmonary edema [ ]c) Acute kidney injury or renal failure [ ]d) Respiratory failure (eg, need for noninvasive or invasive mechanical ventilation) (23) [ ]e) Concomitant pneumonia or significant electrolyte abnormality (eg, severe hyponatremia) [ ]f) Newly diagnosed (new onset) atrial fibrillation [ ]g) Stage IV chronic kidney disease (estimated glomerular filtration rate of less than 30 mL/min/1.73m2 (0.50 mL/sec/1.73m2), and not previously on chronic dialysis The original [facility] content created by [employer] has been revised. The portions of the content which have been revised are identified through the use of italic text or in bold, and [facility] has neither reviewed nor approved the modified material. All other unmodified content is copyright [facility]. Please see references footnoted in the original [facility] edition 2016 Admission Criteria Met: Yes
[2016-05-08 14:24] LABS: pH, Body Fluid 7.573
--- NOTE | 2016-05-08 14:25 | Procedure Note ---
Date of procedure: 05/08/16 Pre-op diagnosis: Ascites Post-op diagnosis: same Procedure: US guided paracentesis. Findings: 2 liters of cloudy yellow fluid removed. Anesthesia: local Surgeon: RENEE ERICKSON Estimated blood loss: none Specimen disposition: to lab Condition: stable Disposition: floor
--- NOTE | 2016-05-08 14:27 | Ultrasound Report ---
ULTRASOUND-GUIDED PARACENTESIS INDICATION: Ascites. COMPARISON: Recent abdominal CT and ultrasound imaging. FINDINGS: After explaining the risk and benefits to the patient's sister, written informed consent obtained. Using ultrasound guidance, an appropriate skin site in the right lower quadrant marked. Skin prepped and draped in the usual sterile fashion. 1% Xylocaine used for local anesthesia. Using ultrasound guidance, a 5 Swedish Yueh catheter was placed into the fluid collection and 2000 cc of cloudy yellow fluid aspirated. Sample sent to laboratory. Catheter removed and hemostasis achieved. Patient tolerated the procedure well and left the radiology department in stable condition. CONCLUSION: Ultrasound guided paracentesis, as described above. Dr. Garner present for and performed the entire procedure. Thank you for the opportunity to participate in this patient's care.
[2016-05-08 14:30] LABS: Total Protein,Body Fluid 5.5 (15.0-45.0)
[2016-05-08 14:33] LABS: LDH,Body Fluid 133
--- NOTE | 2016-05-08 14:47 | Event Note ---
Date: 05/08/16 Pt off floor getting paracentesis done. Sister in room. Notes that pt has had recurrent paracentesis since approx 2012, after colectomy.
[2016-05-08 14:50] LABS: Basophils Body Fluid 0 %; Eosinophils Body Fluid 0 %; Reactive Lymph Body Fluid 0 %
[2016-05-08] MEDS: KCL 10MEQ/100ML 10 MEQ/100 ML BAG IV SCH ×6 (14:50→22:31)
--- NOTE | 2016-05-08 16:21 | Progress Note ---
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 Proceed with paracentesis. Subjective Date of service: 05/08/16 Interval history: Patient off the floor for paracentesis. No cardiac events overnight reported. Objective Vital Signs Temp Pulse Pulse Pulse Pulse Resp BP 05/08/16 11:30 98.7 F 70 16 05/08/16 10:46 70 111/66 05/08/16 10:44 70 111/66 05/08/16 07:30 98.4 F 70 20 05/08/16 04:15 97.6 F 70 20 05/08/16 00:10 97.7 F 70 20 05/07/16 21:22 97.6 F 70 20 05/07/16 20:47 70 05/07/16 17:33 97.5 F L 60 20 BP BP Pulse Ox 05/08/16 11:30 108/57 100 05/08/16 10:46 05/08/16 10:44 05/08/16 07:30 111/66 97 05/08/16 04:15 104/59 96 05/08/16 00:10 111/68 97 05/07/16 21:22 121/73 98 05/07/16 20:47 05/07/16 17:33 106/70 95 - Physical Examination Extremities: Present: +1 Edema - Labs and Meds Comprehensive Metabolic Panel 05/08/16 Range/Units 08:42 Sodium 143 (137-145) mmol/L Potassium 2.6 L* (3.6-5.0) mmol/L Chloride 97.7 L (98-107) mmol/L Carbon Dioxide 29 (22-30) mmol/L BUN 17 (9-20) mg/dL Creatinine 1.2 (0.8-1.5) mg/dL Glucose 98 (75-100) mg/dL Calcium 9.1 (8.4-10.2) mg/dL
--- NOTE | 2016-05-08 18:22 | Progress Note ---
Assessment and Plan Assessment and plan: Ascites/cirrhosis liver * IV diuretics, s/p ultrasound-guided paracentesis today * GI following, supportive care * follow peritonial fluid study Acute exacerbation of systolic congestive heart failure * cont coreg, lisinopril and lasix * cardiology eval * no aspirin as pt is coagulopathic Cardiomyopathy s/p ICD placement * monitor for arrhythmia Coagulopathy * Secondary to hepatic cirrhosis, no evidence of bleeding * Closely monitor Peritoneal carcinomatosis * On CT, ascitic fluid study pending * oncology evaluation if needed History of colostomy/functional * Colostomy care Seizure disorder * continue keppra, seizure precautions Type 2 diabetes mellitus * Accu-Chek sliding scale coverage and ADA diet PVD, likley * follow LLE arterial doppler study Severe hypokalemia * replace and monitor, could be due to diuretics DVT prophylaxis * No pharmacologic anticoagulation in view of coagulopathy * SCDs Full code status History Interval history: Patient seen and examined. Medical records and medication list reviewed. No acute event overnight noted by the RN. Patient denies any chest pain or difficulty breathing. Patient is tolerating diet. s/p paracenthesis today drained 2L of cloudy fluid Discussed plan of care at bedside with patient. Hospitalist Physical - Physical exam Narrative exam: GENERAL: elderly male lying on bed appeared to be in no discomfort. HEENT: Normocephalic. Atraumatic. No conjunctival congestion or icterus. Patient has moist mucous membranes. NECK: Supple. Trachea midline. CHEST/LUNGS: Clear to auscultated bilaterally, breathing nonlabored. No wheezes crackles or rhonchi. HEART/CARDIOVASCULAR: Regular in rate and rhythm. S1 and S2 positive. faint LLE dorsalis pedis ABDOMEN: Abdomen is soft, nontender. Patient has normal bowel sounds. SKIN: There is no rash. b/l skin discoloration NEURO: No focal motor deficit. Follows command. MUSCULOSKELETAL: No joint effusion or tenderness. EXTRIMITY: No edema, no cyanosis or clubbing. PSYCH: Cooperative. - Constitutional Vitals: Temp Pulse Resp BP Pulse Ox 98.7 F 70 16 108/57 100 05/08/16 11:30 05/08/16 11:30 05/08/16 11:30 05/08/16 11:30 05/08/16 11:30 General appearance: Present: mild distress, well-nourished, obese Results - Labs CBC & Chem 7: 05/07/16 04:04 05/08/16 08:42 Labs: Laboratory Last Values WBC 4.4 K/mm3 (4.5-11.0) L 05/07/16 04:04 RBC 5.08 M/mm3 (3.65-5.03) H 05/07/16 04:04 Hgb 13.3 gm/dl (11.8-15.2) 05/07/16 04:04 Hct 42.8 % (35.5-45.6) 05/07/16 04:04 MCV 84 fl (84-94) 05/07/16 04:04 MCH 26 pg (28-32) L 05/07/16 04:04 MCHC 31 % (32-34) L 05/07/16 04:04 RDW 16.2 % (13.2-15.2) H 05/07/16 04:04 Plt Count 114 K/mm3 (140-440) L 05/07/16 04:04 Lymph % (Auto) 12.3 % (13.4-35.0) L 05/06/16 11:17 [place] % (Auto) 13.6 % (0.0-7.3) H 05/06/16 11:17 Eos % (Auto) Restaurant Supervisor 05/07/16 04:04 Baso % (Auto) 1.3 % (0.0-1.8) 05/06/16 11:17 Lymph # 0.6 K/mm3 (1.2-5.4) L 05/06/16 11:17 [place] # 0.7 K/mm3 (0.0-0.8) 05/06/16 11:17 Eos # 0.6 K/mm3 (0.0-0.4) H 05/06/16 11:17 Baso # 0.1 K/mm3 (0.0-0.1) 05/06/16 11:17 Add Manual Diff Complete 05/07/16 04:04 Total Counted 100 05/07/16 04:04 Seg Neutrophils % 60.8 % (40.0-70.0) 05/06/16 11:17 Seg Neuts % (Manual) 62.0 % (40.0-70.0) 05/07/16 04:04 Band Neutrophils % 0 % 05/07/16 04:04 Lymphocytes % (Manual) 17.0 % (13.4-35.0) 05/07/16 04:04 Reactive Lymphs % (Man) 0 % 05/07/16 04:04 Monocytes % (Manual) 7.0 % (0.0-7.3) 05/07/16 04:04 Eosinophils % (Manual) 14.0 % (0.0-4.3) H 05/07/16 04:04 Basophils % (Manual) 0 % (0.0-1.8) 05/07/16 04:04 Metamyelocytes % 0 % 05/07/16 04:04 Myelocytes % 0 % 05/07/16 04:04 Promyelocytes % 0 % 05/07/16 04:04 Blast Cells % 0 % 05/07/16 04:04 Nucleated RBC % Not Reportable 05/07/16 04:04 Seg Neutrophils # 3.1 K/mm3 (1.8-7.7) 05/06/16 11:17 Seg Neutrophils # Man 2.7 K/mm3 (1.8-7.7) 05/07/16 04:04 Band Neutrophils # 0.0 K/mm3 05/07/16 04:04 Lymphocytes # (Manual) 0.7 K/mm3 (1.2-5.4) L 05/07/16 04:04 Abs React Lymphs (Man) 0.0 K/mm3 05/07/16 04:04 Monocytes # (Manual) 0.3 K/mm3 (0.0-0.8) 05/07/16 04:04 Eosinophils # (Manual) 0.6 K/mm3 (0.0-0.4) H 05/07/16 04:04 Basophils # (Manual) 0.0 K/mm3 (0.0-0.1) 05/07/16 04:04 Metamyelocytes # 0.0 K/mm3 05/07/16 04:04 Myelocytes # 0.0 K/mm3 05/07/16 04:04 Promyelocytes # 0.0 K/mm3 05/07/16 04:04 Blast Cells # 0.0 K/mm3 05/07/16 04:04 WBC Morphology Not Reportable 05/07/16 04:04 Hypersegmented Neuts Not Reportable 05/07/16 04:04 Hyposegmented Neuts Not Reportable 05/07/16 04:04 Hypogranular Neuts Not Reportable 05/07/16 04:04 Smudge Cells Not Reportable 05/07/16 04:04 Toxic Granulation Not Reportable 05/07/16 04:04 Toxic Vacuolation Not Reportable 05/07/16 04:04 Dohle Bodies Not Reportable 05/07/16 04:04 Pelger-Huet Anomaly Not Reportable 05/07/16 04:04 Katherine Rods Not Reportable 05/07/16 04:04 Platelet Estimate Appears decreased 05/07/16 04:04 Clumped Platelets Not Reportable 05/07/16 04:04 Plt Clumps, EDTA Not Reportable 05/07/16 04:04 Large Platelets Not Reportable 05/07/16 04:04 Giant Platelets Not Reportable 05/07/16 04:04 Platelet Satelliting Not Reportable 05/07/16 04:04 Plt Morphology Comment Not Reportable 05/07/16 04:04 RBC Morphology Not Reportable 05/07/16 04:04 Dimorphic RBCs Not Reportable 05/07/16 04:04 Polychromasia Not Reportable 05/07/16 04:04 Hypochromasia Not Reportable 05/07/16 04:04 Poikilocytosis Not Reportable 05/07/16 04:04 Anisocytosis Few 05/07/16 04:04 Microcytosis Not Reportable 05/07/16 04:04 Macrocytosis Not Reportable 05/07/16 04:04 Spherocytes Not Reportable 05/07/16 04:04 Pappenheimer Bodies Not Reportable 05/07/16 04:04 Sickle Cells Not Reportable 05/07/16 04:04 Target Cells Not Reportable 05/07/16 04:04 Tear Drop Cells Not Reportable 05/07/16 04:04 Ovalocytes Not Reportable 05/07/16 04:04 Helmet Cells Not Reportable 05/07/16 04:04 [place] Bodies Not Reportable 05/07/16 04:04 [place] Rings Not Reportable 05/07/16 04:04 Marc Cells Not Reportable 05/07/16 04:04 Bite Cells Not Reportable 05/07/16 04:04 Crenated Cell Not Reportable 05/07/16 04:04 Elliptocytes Few 05/07/16 04:04 Acanthocytes (Spur) Not Reportable 05/07/16 04:04 Rouleaux Not Reportable 05/07/16 04:04 Hemoglobin C Crystals Not Reportable 05/07/16 04:04 Schistocytes Not Reportable 05/07/16 04:04 Malaria parasites Not Reportable 05/07/16 04:04 Honorio Bodies Not Reportable 05/07/16 04:04 Hem Pathologist Commnt No 05/07/16 04:04 PT 17.1 Sec. (12.2-14.9) H 05/07/16 04:04 INR 1.40 (0.87-1.13) H 05/07/16 04:04 APTT 34.9 Sec. (24.2-36.6) 05/06/16 15:58 Sodium 143 mmol/L (137-145) 05/08/16 08:42 Potassium 2.6 mmol/L (3.6-5.0) L* 05/08/16 08:42 Chloride 97.7 mmol/L (98-107) L 05/08/16 08:42 Carbon Dioxide 29 mmol/L (22-30) 05/08/16 08:42 Anion Gap 19 mmol/L 05/08/16 08:42 BUN 17 mg/dL (9-20) 05/08/16 08:42 Creatinine 1.2 mg/dL (0.8-1.5) 05/08/16 08:42 Estimated GFR > 60 ml/min 05/08/16 08:42 BUN/Creatinine Ratio 14.16 % 05/08/16 08:42 Glucose 98 mg/dL (75-100) 05/08/16 08:42 POC Glucose 283 (70-105) H 05/08/16 17:37 Hemoglobin A1c 7.0 % (4-6) H 05/07/16 04:04 Calcium 9.1 mg/dL (8.4-10.2) 05/08/16 08:42 Total Bilirubin 2.6 mg/dL (0.1-1.2) H 05/07/16 04:04 Direct Bilirubin 0.5 mg/dL (0-0.2) H 05/07/16 04:04 Indirect Bilirubin 2.1 mg/dL 05/07/16 04:04 AST 21 units/L (5-40) 05/07/16 04:04 ALT 13 units/L (7-56) 05/07/16 04:04 Alkaline Phosphatase 75 units/L (35-129) 05/07/16 04:04 Ammonia 45.0 umol/L (25-60) 05/06/16 15:58 Troponin T 0.151 ng/mL (0.00-0.029) H* 05/06/16 11:17 NT-Pro-B Natriuret Pep 4387 pg/mL (0-900) H 05/06/16 11:17 Total Protein 7.7 g/dL (6.3-8.2) 05/07/16 04:04 Albumin 3.5 g/dL (3.9-5) L 05/07/16 04:04 Albumin/Globulin Ratio 0.8 % 05/07/16 04:04 Triglycerides 59 mg/dL (2-149) 05/06/16 11:17 Cholesterol 78 mg/dL (50-199) 05/06/16 11:17 LDL Cholesterol Direct 37 mg/dL (50-130) L 05/06/16 11:17 HDL Cholesterol 30 mg/dL (40-59) L 05/06/16 11:17 Cholesterol/HDL Ratio 2.60 % 05/06/16 11:17 Urine Color Straw (Yellow) 05/06/16 04:30 Urine Turbidity Clear (Clear) 05/06/16 04:30 Urine pH 5.0 (5.0-7.0) 05/06/16 04:30 Ur Specific [place] 1.005 (1.003-1.030) 05/06/16 04:30 Urine Protein <15 mg/dl mg/dL (Negative) 05/06/16 04:30 Urine Glucose (UA) Neg mg/dL (Negative) 05/06/16 04:30 Urine Ketones Neg mg/dL (Negative) 05/06/16 04:30 Urine Blood Sm (Negative) 05/06/16 04:30 Urine Nitrite Neg (Negative) 05/06/16 04:30 Urine Bilirubin Neg (Negative) 05/06/16 04:30 Urine Urobilinogen < 2.0 mg/dL (<2.0) 05/06/16 04:30 Ur Leukocyte Esterase Tr (Negative) 05/06/16 04:30 Urine WBC (Auto) < 1.0 /HPF (0.0-6.0) 05/06/16 04:30 Urine RBC (Auto) 2.0 /HPF (0.0-6.0) 05/06/16 04:30 U Epithel Cells (Auto) 3.0 /HPF (0-13.0) 05/06/16 04:30 Amorphous Crystals 1+ 05/06/16 04:30 Hyaline Casts 6 /LPF 05/06/16 04:30 Urine Mucus Few /HPF 05/06/16 04:30 Fluid Type 05/08/16 Unknown Fluid Color Yellow 05/08/16 Unknown Fluid Appearance Cloudy 05/08/16 Unknown Fluid pH 7.573 05/08/16 Unknown Fluid WBC 400 /mm3 05/08/16 Unknown Fluid RBC 5700 /mm3 05/08/16 Unknown Fluid Seg Neutrophils 31.0 % 05/08/16 Unknown Fluid Lymphocytes 30.0 % 05/08/16 Unknown Fluid Reactive Lymphs 0 % 05/08/16 Unknown Fluid Monocytes 39.0 % 05/08/16 Unknown Fluid Eosinophils 0 % 05/08/16 Unknown Fluid Basophils 0 % 05/08/16 Unknown Fluid Glucose 126 mg/dL (40-70) H 05/08/16 Unknown Fluid Total Protein 5.5 (15.0-45.0) L 05/08/16 Unknown Fluid Albumin 2.5 g/dL 05/08/16 Unknown Fluid LDH 133 05/08/16 Unknown Fluid Amylase 123 05/08/16 Unknown - Imaging and Cardiology US - abdomen: report reviewed
[2016-05-08] MEDS ORDERED: NACL 0.9% 500 ML 500 ML ONE (18:36)
[2016-05-08] MEDS ORDERED: NACL 0.9% 250ML 250 ML IV ONE (19:26)
[2016-05-08] MEDS: ZOCOR PO SCH (21:53)
[2016-05-09] MEDS: TYLENOL PO PRN ×2 (00:19→05:52)
[2016-05-09] MEDS: NOVOLOG SUB-Q SCH ×5 (01:28→22:24)
[2016-05-09] MEDS: LASIX IV SCH ×2 (05:53→18:00)
[2016-05-09 06:16] LABS: Anion Gap 18 mmol/L; Blood Urea Nitrogen 21 mg/dL (9-20); Calcium 8.8 mg/dL (8.4-10.2); Carbon Dioxide 32 mmol/L (22-30); Chloride 97.7 mmol/L (98-107); Glucose 141 mg/dL (75-100); Sodium 144 mmol/L (137-145)
[2016-05-09 06:42] LABS: Potassium 3.5 mmol/L (3.6-5.0)
[2016-05-09] MEDS: PROTONIX PO SCH (09:42)
[2016-05-09] MEDS: KEPPRA PO SCH ×2 (09:42→22:24)
[2016-05-09] MEDS: COREG PO SCH (09:42)
[2016-05-09] MEDS: ZAROXOLYN PO SCH (09:42)
--- NOTE | 2016-05-09 09:55 | Gastroenterology Progress Note ---
Assessment and Plan 1) Ascites 2) Hx of abdominal colectomy with Dr. Friedman 04/13 requiring recurrent abdominal decompressions. -Unclear etiology. -He has underwent paracentesis in the past and in 08/2013 noted for SBP. -He was experiencing worsening distention and outpatient CT ordered per PCP on with noted nodular contour to the liver, GB calculi, and gastric/splenic varices. There is suggestion of possible carcinomatosis and noted mesenteric lymph nodes. He also has an ileostomy 2/2 colectomy. -Pt has ICD and IVC filter -S/P paracentesis with 2 L removed. SAAG 1.0 suggestive of other etiology for ascites (compared to albumin on 05/07/16, however, cytology is pending. NO SBP per fluid. Patient is also noted to have extensive scrotal edema. -Further recommendations to follow Subjective Date of service: 05/09/16 Interval history: Sitting on side of bed. Family at bedside. Denies pain. Objective - Constitutional Vitals: Temp Pulse Resp BP Pulse Ox 98.6 F 70 20 108/63 99 05/09/16 06:43 05/09/16 09:42 05/09/16 06:43 05/09/16 09:42 05/09/16 06:43 General appearance: no acute distress - EENT ENT: hearing intact - Respiratory Respiratory: bilateral: diminished - Cardiovascular Rhythm: regular Heart Sounds: Present: S1 & S2 - Gastrointestinal General gastrointestinal: Present: distended, normal bowel sounds - Genitourinary Male Genitourinary: other (noted scrotal edema) - Integumentary Integumentary: Present: warm, dry - Neurologic Neurological: alert and oriented x3 - Labs CBC & Chem 7: 05/07/16 04:04 05/09/16 05:33 Labs: Laboratory Results - last 24 hr 05/08/16 05/08/16 05/08/16 08:21 12:07 17:37 Sodium Potassium Chloride Carbon Dioxide Anion Gap BUN Creatinine Estimated GFR BUN/Creatinine Ratio Glucose POC Glucose 93 134 H 283 H Calcium Fluid Type Fluid Color Fluid Appearance Fluid pH Fluid WBC Fluid RBC Fluid Seg Neutrophils Fluid Lymphocytes Fluid Reactive Lymphs Fluid Monocytes Fluid Eosinophils Fluid Basophils Fluid Glucose Fluid Total Protein Fluid Albumin Fluid LDH Fluid Amylase 05/08/16 05/08/16 05/09/16 22:27 Unknown 05:33 Sodium 144 Potassium 3.5 L D Chloride 97.7 L Carbon Dioxide 32 H Anion Gap 18 BUN 21 H Creatinine 1.2 Estimated GFR > 60 BUN/Creatinine Ratio 17.50 Glucose 141 H POC Glucose 181 H Calcium 8.8 Fluid Type Fluid Color Yellow Fluid Appearance Cloudy Fluid pH 7.573 Fluid WBC 400 Fluid RBC 5700 Fluid Seg Neutrophils 31.0 Fluid Lymphocytes 30.0 Fluid Reactive Lymphs 0 Fluid Monocytes 39.0 Fluid Eosinophils 0 Fluid Basophils 0 Fluid Glucose 126 H Fluid Total Protein 5.5 L Fluid Albumin 2.5 Fluid LDH 133 Fluid Amylase 123 05/09/16 09:02 Sodium Potassium Chloride Carbon Dioxide Anion Gap BUN Creatinine Estimated GFR BUN/Creatinine Ratio Glucose POC Glucose 147 H Calcium Fluid Type Fluid Color Fluid Appearance Fluid pH Fluid WBC Fluid RBC Fluid Seg Neutrophils Fluid Lymphocytes Fluid Reactive Lymphs Fluid Monocytes Fluid Eosinophils Fluid Basophils Fluid Glucose Fluid Total Protein Fluid Albumin Fluid LDH Fluid Amylase
[2016-05-09] MEDS: ZESTRIL PO SCH (10:30)
--- NOTE | 2016-05-09 11:35 | Progress Note ---
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 Echocardiogram for LVEF assessment. Subjective Date of service: 05/09/16 Interval history: Patient reports shortness of breath is less. Still with scrotal edema. Objective Vital Signs Temp Pulse Pulse Resp BP BP Pulse Ox 05/09/16 09:42 70 108/63 05/09/16 06:43 98.6 F 88 20 125/70 99 05/09/16 06:36 98.7 F 88 20 05/09/16 05:52 20 05/09/16 04:44 70 05/09/16 00:25 98.1 F 70 22 111/74 96 05/09/16 00:19 20 05/08/16 20:20 97.4 F L 74 18 110/74 98 05/08/16 16:30 98.6 F 70 16 116/65 98 - Physical Examination General: No Apparent Distress HEENT: Positive: PERRL Neck: Positive: trachea midline Cardiac: Positive: Other (paced) Lungs: Positive: Decreased Breath Sounds Neuro: Positive: Grossly Intact Extremities: Present: +1 Edema - Labs and Meds Comprehensive Metabolic Panel 05/09/16 Range/Units 05:33 Sodium 144 (137-145) mmol/L Potassium 3.5 L D (3.6-5.0) mmol/L Chloride 97.7 L (98-107) mmol/L Carbon Dioxide 32 H (22-30) mmol/L BUN 21 H (9-20) mg/dL Creatinine 1.2 (0.8-1.5) mg/dL Glucose 141 H (75-100) mg/dL Calcium 8.8 (8.4-10.2) mg/dL
--- NOTE | 2016-05-09 13:35 | Vascular Lab Report ---
LEFT LOWER EXTREMITY ARTERIAL DUPLEX: REASON FOR EXAM: Peripheral arterial disease. COMMENTS ON THE LEFT: Triphasic waveforms are seen proximally. Monophasic waveforms are seen distally. Significant decrease in the velocity is noted in the popliteal artery which suggest severe stenosis above.. Scattered plaque is followed the left lower extremity. Findings are consistent with abnormal perfusion. Findings are inconsistent with the ability to heal distal wounds. IMPRESSION: LEFT:Possible popliteal artery stenosis. Clinical correlation recommended.
--- NOTE | 2016-05-09 14:42 | Progress Note ---
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, no evidence of bleeding Closely monitor Peritoneal carcinomatosis On CT, ascitic fluid study pending oncology evaluation if needed History of colostomy/functional Colostomy care Seizure disorder continue keppra, seizure precautions Type 2 diabetes mellitus Accu-Chek sliding scale coverage and ADA diet PVD, likley follow LLE arterial doppler study Severe hypokalemia replace and monitor, could be due to diuretics DVT prophylaxis No pharmacologic anticoagulation in view of coagulopathy SCDs Full code status SAAG is 1.0 and ascites total protein is high at 5.5, etiology unclear, called Gi to discuss==>differential include infection, malignancy and pancreatic ascites with saag <1.1 and total protein >2.5 History Interval history: Patient seen and examined. Follow up on current diagnosis. Overnight uneventful. No cp, sob, n/v or severe headaches. Imaging, old records, testing, labs, nursing notes reviewed. Hospitalist Physical - Physical exam Narrative exam: GEN: Chronically debilitated ill-appearing,, NAD, AWAKE, ALERT, ORIENTATED HEENT: NCAT, PERRL, EOMI, OP CLEAR NECK: SUPPLE, NO THYROMEGALY, NO JVD, NO LAD CVS: RRR, NORMAL S1S2 LUNGS/CHEST: Reduced breath sounds bilaterally diminished NORMAL CHEST EXPANSION B, GOOD AIR ENTRY B ABD: Distended GBS, NO REBOUND OR GUARDING EXT/SKIN: SIGNIFICANT EDEMA, SCROTAL EDEMA, PITTING LEG EDEMA MSK: FROM X 4 EXTREMITIES NEURO: CN 2-12 GROSSLY INTACT, NO new FOCAL DEFICITS PSY: CALM - Constitutional Vitals: Temp Pulse Resp BP Pulse Ox 98.6 F 70 20 108/63 99 05/09/16 06:43 05/09/16 09:42 05/09/16 06:43 05/09/16 09:42 05/09/16 06:43 General appearance: Present: mild distress, well-nourished, obese Results - Labs CBC & Chem 7: 05/07/16 04:04 05/09/16 05:33 Labs: Laboratory Last Values WBC 4.4 K/mm3 (4.5-11.0) L 05/07/16 04:04 RBC 5.08 M/mm3 (3.65-5.03) H 05/07/16 04:04 Hgb 13.3 gm/dl (11.8-15.2) 05/07/16 04:04 Hct 42.8 % (35.5-45.6) 05/07/16 04:04 MCV 84 fl (84-94) 05/07/16 04:04 MCH 26 pg (28-32) L 05/07/16 04:04 MCHC 31 % (32-34) L 05/07/16 04:04 RDW 16.2 % (13.2-15.2) H 05/07/16 04:04 Plt Count 114 K/mm3 (140-440) L 05/07/16 04:04 Lymph % (Auto) 12.3 % (13.4-35.0) L 05/06/16 11:17 [place] % (Auto) 13.6 % (0.0-7.3) H 05/06/16 11:17 Eos % (Auto) [employer] 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 05/07/16 04:04 Baso % (Auto) 1.3 % (0.0-1.8) 05/06/16 11:17 Lymph # 0.6 K/mm3 (1.2-5.4) L 05/06/16 11:17 [place] # 0.7 K/mm3 (0.0-0.8) 05/06/16 11:17 Eos # 0.6 K/mm3 (0.0-0.4) H 05/06/16 11:17 Baso # 0.1 K/mm3 (0.0-0.1) 05/06/16 11:17 Add Manual Diff Complete 05/07/16 04:04 Total Counted 100 05/07/16 04:04 Seg Neutrophils % 60.8 % (40.0-70.0) 05/06/16 11:17 Seg Neuts % (Manual) 62.0 % (40.0-70.0) 05/07/16 04:04 Band Neutrophils % 0 % 05/07/16 04:04 Lymphocytes % (Manual) 17.0 % (13.4-35.0) 05/07/16 04:04 Reactive Lymphs % (Man) 0 % 05/07/16 04:04 Monocytes % (Manual) 7.0 % (0.0-7.3) 05/07/16 04:04 Eosinophils % (Manual) 14.0 % (0.0-4.3) H 05/07/16 04:04 Basophils % (Manual) 0 % (0.0-1.8) 05/07/16 04:04 Metamyelocytes % 0 % 05/07/16 04:04 Myelocytes % 0 % 05/07/16 04:04 Promyelocytes % 0 % 05/07/16 04:04 Blast Cells % 0 % 05/07/16 04:04 Nucleated RBC % Not Reportable 05/07/16 04:04 Seg Neutrophils # 3.1 K/mm3 (1.8-7.7) 05/06/16 11:17 Seg Neutrophils # Man 2.7 K/mm3 (1.8-7.7) 05/07/16 04:04 Band Neutrophils # 0.0 K/mm3 05/07/16 04:04 Lymphocytes # (Manual) 0.7 K/mm3 (1.2-5.4) L 05/07/16 04:04 Abs React Lymphs (Man) 0.0 K/mm3 05/07/16 04:04 Monocytes # (Manual) 0.3 K/mm3 (0.0-0.8) 05/07/16 04:04 Eosinophils # (Manual) 0.6 K/mm3 (0.0-0.4) H 05/07/16 04:04 Basophils # (Manual) 0.0 K/mm3 (0.0-0.1) 05/07/16 04:04 Metamyelocytes # 0.0 K/mm3 05/07/16 04:04 Myelocytes # 0.0 K/mm3 05/07/16 04:04 Promyelocytes # 0.0 K/mm3 05/07/16 04:04 Blast Cells # 0.0 K/mm3 05/07/16 04:04 WBC Morphology Not Reportable 05/07/16 04:04 Hypersegmented Neuts Not Reportable 05/07/16 04:04 Hyposegmented Neuts Not Reportable 05/07/16 04:04 Hypogranular Neuts Not Reportable 05/07/16 04:04 Smudge Cells Not Reportable 05/07/16 04:04 Toxic Granulation Not Reportable 05/07/16 04:04 Toxic Vacuolation Not Reportable 05/07/16 04:04 Dohle Bodies Not Reportable 05/07/16 04:04 Pelger-Huet Anomaly Not Reportable 05/07/16 04:04 Katherine Rods Not Reportable 05/07/16 04:04 Platelet Estimate Appears decreased 05/07/16 04:04 Clumped Platelets Not Reportable 05/07/16 04:04 Plt Clumps, EDTA Not Reportable 05/07/16 04:04 Large Platelets Not Reportable 05/07/16 04:04 Giant Platelets Not Reportable 05/07/16 04:04 Platelet Satelliting Not Reportable 05/07/16 04:04 Plt Morphology Comment Not Reportable 05/07/16 04:04 RBC Morphology Not Reportable 05/07/16 04:04 Dimorphic RBCs Not Reportable 05/07/16 04:04 Polychromasia Not Reportable 05/07/16 04:04 Hypochromasia Not Reportable 05/07/16 04:04 Poikilocytosis Not Reportable 05/07/16 04:04 Anisocytosis Few 05/07/16 04:04 Microcytosis Not Reportable 05/07/16 04:04 Macrocytosis Not Reportable 05/07/16 04:04 Spherocytes Not Reportable 05/07/16 04:04 Pappenheimer Bodies Not Reportable 05/07/16 04:04 Sickle Cells Not Reportable 05/07/16 04:04 Target Cells Not Reportable 05/07/16 04:04 Tear Drop Cells Not Reportable 05/07/16 04:04 Ovalocytes Not Reportable 05/07/16 04:04 Helmet Cells Not Reportable 05/07/16 04:04 Bruce-Bergen Bodies Not Reportable 05/07/16 04:04 [place] Rings Not Reportable 05/07/16 04:04 [place] Cells Not Reportable 05/07/16 04:04 Bite Cells Not Reportable 05/07/16 04:04 Crenated Cell Not Reportable 05/07/16 04:04 Elliptocytes Few 05/07/16 04:04 Acanthocytes (Spur) Not Reportable 05/07/16 04:04 Rouleaux Not Reportable 05/07/16 04:04 Hemoglobin C Crystals Not Reportable 05/07/16 04:04 Schistocytes Not Reportable 05/07/16 04:04 Malaria parasites Not Reportable 05/07/16 04:04 Honorio Bodies Not Reportable 05/07/16 04:04 Hem Pathologist Commnt No 05/07/16 04:04 PT 17.1 Sec. (12.2-14.9) H 05/07/16 04:04 INR 1.40 (0.87-1.13) H 05/07/16 04:04 APTT 34.9 Sec. (24.2-36.6) 05/06/16 15:58 Sodium 144 mmol/L (137-145) 05/09/16 05:33 Potassium 3.5 mmol/L (3.6-5.0) L D 05/09/16 05:33 Chloride 97.7 mmol/L (98-107) L 05/09/16 05:33 Carbon Dioxide 32 mmol/L (22-30) H 05/09/16 05:33 Anion Gap 18 mmol/L 05/09/16 05:33 BUN 21 mg/dL (9-20) H 05/09/16 05:33 Creatinine 1.2 mg/dL (0.8-1.5) 05/09/16 05:33 Estimated GFR > 60 ml/min 05/09/16 05:33 BUN/Creatinine Ratio 17.50 % 05/09/16 05:33 Glucose 141 mg/dL (75-100) H 05/09/16 05:33 POC Glucose 193 (70-105) H 05/09/16 11:56 Hemoglobin A1c 7.0 % (4-6) H 05/07/16 04:04 Calcium 8.8 mg/dL (8.4-10.2) 05/09/16 05:33 Total Bilirubin 2.6 mg/dL (0.1-1.2) H 05/07/16 04:04 Direct Bilirubin 0.5 mg/dL (0-0.2) H 05/07/16 04:04 Indirect Bilirubin 2.1 mg/dL 05/07/16 04:04 AST 21 units/L (5-40) 05/07/16 04:04 ALT 13 units/L (7-56) 05/07/16 04:04 Alkaline Phosphatase 75 units/L (35-129) 05/07/16 04:04 Ammonia 45.0 umol/L (25-60) 05/06/16 15:58 Troponin T 0.151 ng/mL (0.00-0.029) H* 05/06/16 11:17 NT-Pro-B Natriuret Pep 4387 pg/mL (0-900) H 05/06/16 11:17 Total Protein 7.7 g/dL (6.3-8.2) 05/07/16 04:04 Albumin 3.5 g/dL (3.9-5) L 05/07/16 04:04 Albumin/Globulin Ratio 0.8 % 05/07/16 04:04 Triglycerides 59 mg/dL (2-149) 05/06/16 11:17 Cholesterol 78 mg/dL (50-199) 05/06/16 11:17 LDL Cholesterol Direct 37 mg/dL (50-130) L 05/06/16 11:17 HDL Cholesterol 30 mg/dL (40-59) L 05/06/16 11:17 Cholesterol/HDL Ratio 2.60 % 05/06/16 11:17 Urine Color Straw (Yellow) 05/06/16 04:30 Urine Turbidity Clear (Clear) 05/06/16 04:30 Urine pH 5.0 (5.0-7.0) 05/06/16 04:30 Ur Specific [place] 1.005 (1.003-1.030) 05/06/16 04:30 Urine Protein <15 mg/dl mg/dL (Negative) 05/06/16 04:30 Urine Glucose (UA) Neg mg/dL (Negative) 05/06/16 04:30 Urine Ketones Neg mg/dL (Negative) 05/06/16 04:30 Urine Blood Sm (Negative) 05/06/16 04:30 Urine Nitrite Neg (Negative) 05/06/16 04:30 Urine Bilirubin Neg (Negative) 05/06/16 04:30 Urine Urobilinogen < 2.0 mg/dL (<2.0) 05/06/16 04:30 Ur Leukocyte Esterase Tr (Negative) 05/06/16 04:30 Urine WBC (Auto) < 1.0 /HPF (0.0-6.0) 05/06/16 04:30 Urine RBC (Auto) 2.0 /HPF (0.0-6.0) 05/06/16 04:30 U Epithel Cells (Auto) 3.0 /HPF (0-13.0) 05/06/16 04:30 Amorphous Crystals 1+ 05/06/16 04:30 Hyaline Casts 6 /LPF 05/06/16 04:30 Urine Mucus Few /HPF 05/06/16 04:30 Fluid Type 05/08/16 Unknown Fluid Color Yellow 05/08/16 Unknown Fluid Appearance Cloudy 05/08/16 Unknown Fluid pH 7.573 05/08/16 Unknown Fluid WBC 400 /mm3 05/08/16 Unknown Fluid RBC 5700 /mm3 05/08/16 Unknown Fluid Seg Neutrophils 31.0 % 05/08/16 Unknown Fluid Lymphocytes 30.0 % 05/08/16 Unknown Fluid Reactive Lymphs 0 % 05/08/16 Unknown Fluid Monocytes 39.0 % 05/08/16 Unknown Fluid Eosinophils 0 % 05/08/16 Unknown Fluid Basophils 0 % 05/08/16 Unknown Fluid Glucose 126 mg/dL (40-70) H 05/08/16 Unknown Fluid Total Protein 5.5 (15.0-45.0) L 05/08/16 Unknown Fluid Albumin 2.5 g/dL 05/08/16 Unknown Fluid LDH 133 05/08/16 Unknown Fluid Amylase 123 05/08/16 Unknown
[2016-05-09] MEDS: ZOCOR PO SCH (22:24)
[2016-05-10] MEDS: LASIX IV SCH (06:42)
[2016-05-10] MEDS ORDERED: K-DUR PO ONE (09:00)
--- NOTE | 2016-05-10 11:10 | Progress Note ---
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 Not a candidate for anticoagulation given underlying liver disease and high risk of bleeding may switch to po lasix 40 mg bid and metolazone 2.5 mg daily may go home cardiac ledezma Subjective Date of service: 05/10/16 Principal diagnosis: Ascites Interval history: patient seems to be doing well this morning He denies chest pain or shortness of breath and is requesting to go home Objective Vital Signs Temp Pulse Pulse Resp BP Pulse Ox 05/10/16 08:00 97.8 F 70 18 108/66 95 05/10/16 04:00 98.4 F 71 18 122/76 97 05/10/16 00:00 97.9 F 70 18 95/58 97 05/09/16 20:00 98.3 F 71 18 101/59 97 05/09/16 17:00 98.2 F 67 18 99/61 97 05/09/16 12:00 98.2 F 70 103/63 99 - Physical Examination General: No Apparent Distress HEENT: Positive: PERRL Neck: Positive: trachea midline Cardiac: Positive: Reg Rate and Rhythm Lungs: Positive: Normal Exam Neuro: Positive: Grossly Intact Abdomen: Positive: Ascites, Distended Extremities: Present: +1 Edema
[2016-05-10] MEDS: NOVOLOG SUB-Q SCH (11:59)
[2016-05-10] MEDS: PROTONIX PO SCH (12:12)
[2016-05-10] MEDS: KEPPRA PO SCH (12:13)
[2016-05-10] MEDS: ZAROXOLYN PO SCH (12:13)
--- NOTE | 2016-05-10 14:02 | Discharge Summary ---
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, no evidence of bleeding Closely monitor Peritoneal carcinomatosis On CT, ascitic fluid study pending oncology evaluation if needed History of colostomy/functional Colostomy care Seizure disorder continue keppra, seizure precautions Type 2 diabetes mellitus Accu-Chek sliding scale coverage and ADA diet PVD, likley follow LLE arterial doppler study Severe hypokalemia replace and monitor, could be due to diuretics DVT prophylaxis No pharmacologic anticoagulation in view of coagulopathy SCDs Full code status SAAG is 1.0 and ascites total protein is high at 5.5, etiology unclear, called Gi to discuss==>differential include infection, malignancy and pancreatic ascites versus serum albumin not collected on same day a paracentesis so SAAG maybe wrong with saag <1.1 and total protein >2.5 per Feed Inspection Supervisor: Recommend: Continue medical therapy including afterload reduction, beta blockers and diuretics for underlying cardiomyopathy. Not a candidate for anticoagulation given underlying liver disease and high risk of bleeding may switch to po lasix 40 mg bid and metolazone 2.5 mg daily may go home cardiac ledezma Disposition: DISCHARGED TO HOME OR SELFCARE Time spent for discharge: 36 minutes Core Measure Documentation - Palliative Care Palliative Care/ Comfort Measures: Not Applicable - Core Measures Any of the following diagnoses?: heart failure - VTE Discharge Requirements Deep Vein Thrombosis/Pulmonary Embolism Present on Admission: No Has pt received <5 days of overlap therapy or INR<2.0: No Anticoagulant overlap therapy prescribed at discharge: No Contraindication No Overlap Therapy order at DC: Not Indicated - Heart Failure Discharge Requirements SEEMA/ARB for LVSD if EF <40%: Yes Beta jose at discharge: Yes Exam - Physical Exam Narrative exam: GEN: Chronically debilitated ill-appearing,, NAD, AWAKE, ALERT, ORIENTATED HEENT: NCAT, PERRL, EOMI, OP CLEAR NECK: SUPPLE, NO THYROMEGALY, NO JVD, NO LAD CVS: RRR, NORMAL S1S2 LUNGS/CHEST: Reduced breath sounds bilaterally diminished NORMAL CHEST EXPANSION B, GOOD AIR ENTRY B ABD: Distended ostomy, pBS, NO REBOUND OR GUARDING EXT/SKIN: SIGNIFICANT EDEMA, SCROTAL EDEMA, less PITTING LEG EDEMA MSK: FROM X 4 EXTREMITIES NEURO: CN 2-12 GROSSLY INTACT, NO new FOCAL DEFICITS PSY: CALM - Constitutional Vitals: Temp Pulse Resp BP Pulse Ox 97.8 F 70 18 108/66 95 05/10/16 08:00 05/10/16 08:00 05/10/16 08:00 05/10/16 08:00 05/10/16 08:00 Plan Activity: advance as tolerated (no strenous activites until cleared by PCP. ) Diet: low salt Follow up with: PRIMARY CARE, [Primary Care Provider] - 3-5 Days Prescriptions: Simvastatin [Zocor TAB] 20 mg PO QHS #30 tablet Carvedilol [Coreg] 3.125 mg PO BID #60 tablet levETIRAcetam [Keppra TAB] 500 mg PO DAILY #30 tablet Lisinopril [Zestril TAB] 5 mg PO QDAY #30 tablet Pantoprazole [Protonix TAB] 40 mg PO DAILY #30 tablet
[2016-05-10] MEDS: COREG PO SCH (16:23)
[2016-05-10 16:24] VITALS: BP 105/71
--- NOTE | 2016-05-15 08:23 | Query- General ---
Deaaudi Morales Date:_05/15/16 Wellness Consultant/CDS:Omar/Stanislaw Espinoza Phone#:_[phone] Exercise your independent professional judgment when responding to this query. Questions asked do not imply a particular answer is desired or expected. We greatly appreciate your clarification on this issue. Clinical Documentation States: 75 Y/O male admitted on 05/06/16 with history of Severe cardiomyopathy s/p ICD placement, cirrhosis of the liver, ascites, HTN, DM 2 presented with worsening abdominal distension, leg and scrotal edema and worsening shortness of breath for the last few weeks, increased the last 2 days. Clinical Findings Show (include reference to source document): Discharge summary states: Ascites/liver cirrhosis SAAG is 1.0 and ascites total protein is high at 5.5, differentials include infection, malignancy and pancreatic ascites Path report: Peritoneal fluid, paracentesis: Negative for malignant cells, The cell block confirms the above diagnosis Given the above clinical scenario can you please provide an appropriate diagnosis based on your knowledge of the patient: PHYSICIAN RESPONSE: [ ] infection, Specify [ ] Malignancy [ ] Pancreatic ascites [ ] Other [ x ] Unable to determine Present on Admission: [x ] Yes (Y) [ ] Clinically undeterminable (W) [ ]No(N) Please also document response in your Progress Notes and/or Discharge Summary and indicate if the condition was present on admission. CAPRID
== END 2016-05-10 17:13 | disposition home health service (06) | DRG 432 ==
LOC: ED 10:04 → 4A 17:28
PROVIDERS: ADMIT Internal Medicine; ATTEND Internal Medicine
PROC: 0W9G3ZX Drainage of Peritoneal Cavity, Percutaneous Approach, Diagnostic (ICD-10-PCS; principal; 2016-05-08)
DX: K74.60 Unspecified cirrhosis of liver (principal); I50.21 Acute systolic (congestive) heart failure; R18.8 Other ascites; I42.9 Cardiomyopathy, unspecified; D68.9 Coagulation defect, unspecified; G40.909 Epilepsy, unspecified, not intractable, without status epilepticus; I11.0 Hypertensive heart disease with heart failure; K72.90 Hepatic failure, unspecified without coma; E87.6 Hypokalemia; E11.51 Type 2 diabetes mellitus with diabetic peripheral angiopathy without gangrene; Z87.891 Personal history of nicotine dependence; Z88.6 Allergy status to analgesic agent; Z82.49 Family history of ischemic heart disease and other diseases of the circulatory system; Z93.3 Colostomy status
CPT/HCPCS: 36415; 49083; 71020; 74150; 76700; 80048; 80061; 80074; 81001; 82040; 82140; 82150; 82947; 82962; 83036; 83605; 83880; 84160; 84484; 85007; 85025; 85610; 85730; 87116; 88112; 88305; 89051; 93005; 93010; 93306; 96374; 96375; C9113; J1650; J1815; J1940; J3480; J7040